=== PATIENT | male | born 1930 | race Caucasian/White ===

== ENCOUNTER 2016-12-28 12:11 | Inpatient (IN) | payer OTHER ==
[~2016-12-28] VITALS: Ht 177.8 cm; Wt 59.0 kg
[~2016-12-28 12:11] MED LIST: ASPIRIN EC81 M1 PO; ENALAPRIL MALEA20 M1 PO; FEOSOL325 MG PO; FINASTERIDE5 M1 PO; LIPITOR40 M1 PO; MIRTAZAPINE15 M2 PO; NAMENDA10 M2 PO; NORVASC2.5 M1 PO; OMEPRAZOLE20 M3 PO; VITAMIN D3400 UNI1 PO
--- NOTE | 2016-12-28 12:17 | NUR ---
86 Y/O MALE BROUGHT IN BY SON FOR EVAL OF MULTIPLE FALLS. SON STATES PT HAS VARIOUS AREAS OF SKIN CANCER ON HEAD AND PICKS AT THEM. MULTIPLE OPEN AREAS NOTED - SOME WITH DRIED BLOOD, OTHERS WITH SCABS. SON STATES PT IS FALLING A LOT. STRUCK HEAD THE OTHER DAY AND HAD + LOC. STRUCK HEAD TODAY AND DENIES LOC. PT HUNCHED FORWARD IN TRIAGE, DIFFICULT TO UNDERSTAND BUT SON REPORTS HX "NEUROLOGICAL CONDITION". R EYE RED AND SWOLLEN - FROM [place] PER SON TAKEN TO [facility] FOR EVAL.
--- NOTE | 2016-12-28 12:39 | NUR ---
TRIAGE NOTE ACKNOWLEDGED AND RN CARE ASSUMED PT BOUGHT TO ROOM # 19 AND EVALUATED BY PA STUDENT AND DEMETRIUS YEN. PT HAS MULTIPLE WOUNDS ON HEAD AND R EAR AT MULTIPLE STAGES OF HEALING. ACCORDING TO SON, PT HAS BEEN FALLING AT LEAST 6 TIMES A DAY SINCE APPROX. SEPTEMBER 2016. PT WENT TO LIVE WITH SON LAST NOVEMBER 2015 AND HE WAS FALLING ONCE OR TWICE A DAY, BUT HAS BEEN GETTING PROGRESSIVELY WORSE SINCE SEPTEMBER. ACCORDING TO SON, PT HAS BEEN REFUSING TO COME TO THE ED AND REFUSING MEDICAL TREATMENT. PT MAY HAVE HAD A LOC DUE TO A FALL 2 WEEKS AGO.
--- NOTE | 2016-12-28 12:58 | ED MVC/FALL/TRAUMA COMPLAINT ---
See Addendum History of Present Illness General Chief Complaint: Fall Stated Complaint: FALL Source: patient, family, old records Exam Limitations: clinical condition, confusion Vital Signs & Intake/Output Vital Signs & Intake/Output Vital Signs Date Time Temp Pulse Resp B/P B/P Pulse O2 O2 Flow FiO2 Mean Ox Delivery Rate 12/28 1632 87 18 142/58 98 Room Air 12/28 1432 132/58 12/28 1421 96.9 76 18 180/75 99 Room Air 12/28 1316 94 Room Air 12/28 1213 98.0 94 16 154/64 94 Room Air Allergies Coded Allergies: Penicillins (RASH, HIVES 05/09/16) bacitracin (From NEOSPORIN ([id number])) (RASH 05/09/16) latex (RASH 05/09/16) neomycin (From NEOSPORIN ([id number])) (RASH 05/09/16) polymyxin B (From NEOSPORIN ([id number])) (RASH 05/09/16) Reconcile Medications Amlodipine (Norvasc) 2.5 MG TABLET 1 TAB PO QPM BP (Reported) Aspirin (Ecotrin*) 81 MG TABLET.DR 1 TAB PO DAILY HEART/BLOOD (Reported) Atorvastatin Calcium (Lipitor) 40 MG TABLET 1 TAB PO QPM CHOLESTEROL ( Reported) Cholecalciferol (Vitamin D3) (Vitamin D3) (Unknown Strength) CAPSULE (Unknown Dose) PO DAILY SUPPLEMENT (Reported) Ferrous Sulfate (Iron Supplement) (Unknown Strength) TABLET (Unknown Dose) PO DAILY SUPPLEMENT (Reported) Finasteride 5 MG TABLET 1 TAB PO DAILY PROSTATE (Reported) Memantine HCl (Namenda XR) 7 MG CAP.SPR.24 1 TAB PO D DEMENTIA (Reported) Mirtazapine 15 MG TABLET 1 TAB PO QPM SLEEP (Reported) Omeprazole 20 MG TABLET.DR 1 TAB PO QPM REFLUX (Reported) Triage Note: 86 Y/O MALE BROUGHT IN BY SON FOR EVAL OF MULTIPLE FALLS. SON STATES PT HAS VARIOUS AREAS OF SKIN CANCER ON HEAD AND PICKS AT THEM. MULTIPLE OPEN AREAS NOTED - SOME WITH DRIED BLOOD, OTHERS WITH SCABS. SON STATES PT IS FALLING A LOT. STRUCK HEAD THE OTHER DAY AND HAD + LOC. STRUCK HEAD TODAY AND DENIES LOC. PT HUNCHED FORWARD IN TRIAGE, DIFFICULT TO UNDERSTAND BUT SON REPORTS HX "NEUROLOGICAL CONDITION". R EYE RED AND SWOLLEN - FROM [place] PER SON TAKEN TO [facility] FOR EVAL. Triage Nurses Notes Reviewed? yes Onset: Abrupt Duration: week(s):, getting worse Timing: recent history Severity: severe Injuries/Fall Location: face, neck, chest Method of Injury: fall Loss of Consciousness: no loss of consciousness HPI: 86-year-old male brought into the emergency room by his son for multiple falls over the past few months. Over 10 falls over the past week. Increased confusion. Patient has multiple bruises and skin abrasions to different areas on his body. Patient lives with his son. They do not have any home health aide. Patient has been increasingly weak. Increasingly confused. Exam is very limited secondary to the patient's condition. (DEMETRIUS VALDOVINOS) Past History Travel History Traveled to [place] past 21 day No Medical History Any Pertinent Medical History? see below for history Neurological: dementia EENT: NONE Cardiovascular: hypertension Respiratory: NONE Gastrointestinal: NONE Hepatic: NONE Renal: NONE Musculoskeletal: NONE Psychiatric: NONE Endocrine: NONE Blood Disorders: NONE Cancer(s): SKIN CANCER RELATIONS DIRECTOR/Reproductive: NONE Surgical History Surgical History: non-contributory Psychosocial History What is your primary language [place]ian Tobacco Use: Quit >30 days ago Family History Hx Contributory? No (DEMETRIUS VALDOVINOS) Review of Systems Review of Systems Constitutional: Reports: see HPI. Eyes: Reports: no symptoms. Ears, Nose, Throat, Mouth: Reports: no symptoms. Respiratory: Reports: no symptoms. Cardiovascular: Reports: no symptoms. Gastrointestinal/Abdominal: Reports: no symptoms. Genitourinary: Reports: no symptoms. Musculoskeletal: Reports: see HPI. Skin: Reports: see HPI. Neurological/Psychological: Reports: no symptoms. All Other Systems: Reviewed and Negative (DEMETRIUS VALDOVINOS) Physical Exam Physical Exam General Appearance: lethargic, moderate distress, thin Head: multiple skin abrasions, ecchymosis, right-sided facial drooping, Eyes: Bilateral: normal appearance. Ears, Nose, Throat, Mouth: hearing grossly normal, moist mucous membrane Neck: normal inspection Respiratory: no respiratory distress, decreased breath sounds, chest wall tenderness Gastrointestinal: soft Back: decreased range of motion Extremities: evidence of injury Neurologic/Psych: disoriented x 3 Core Measures ACS in differential dx? No Severe Sepsis Present: No Septic Shock Present: No (DEMETRIUS VALDOVINOS) Progress Differential Diagnosis: abd injury, C/T/L spine injury, ext injury, ICH, pelvis injury, pnemothorax, spinal cord injury Plan of Care: Orders Procedure Date/time Status TYPE & SCREEN (NOT X-MATCH) 12/28 UNK Active Regular Diet 12/28 D Active Bernardo, Insertion/Removal/Asses 12/28 1502 Active CULTURE,URINE 12/28 1502 Active URINALYSIS 12/28 1502 Complete Add-on Test (ER Only) 12/28 1338 Active TROPONIN LEVEL 12/28 1237 Complete COMPREHENSIVE METABOLIC PANEL 12/28 1237 Complete CBC WITHOUT DIFFERENTIAL 12/28 1237 Complete EKG 12/28 1226 Active Laboratory Tests 12/28/16 1600: Urinalysis LIGHT H, Urine Color YEL, Urine Clarity CLEAR, Urine pH 6.5, Ur Specific [place] 1.015, Urine Protein TRACE H, Urine Ketones NEG, Urine Nitrite NEG, Urine Bilirubin NEG, Urine Urobilinogen 0.2, Ur Leukocyte Esterase NEG, Ur Microscopic SEDIMENT EXAMINED, Urine WBC RARE, Urine Bacteria RARE H, Hyaline Casts RARE H, Urine Hemoglobin NEG, Urine Glucose NEG 12/28/16 1306: Anion Gap 8, Estimated GFR 44 L, BUN/Creatinine Ratio 21.3, Glucose 154 H, Calcium 8.6, Total Bilirubin 0.6, AST 51, ALT 44, Alkaline Phosphatase 99, Troponin I 0.02, Total Protein 6.1 L, Albumin 3.3 L, Globulin 2.8, Albumin/ Globulin Ratio 1.2, CBC w Diff NO MAN DIFF REQ, RBC 2.14 L, MCV 93.9, MCH 31.1 H, RDW 16.5 H, MPV 8.1, Gran % 87.2 H, Lymphocytes % 7.1 L, Monocytes % 5.3, Eosinophils % 0, Basophils % 0.4, Absolute Granulocytes 7.5 H, Absolute Lymphocytes 0.6 L, Absolute Monocytes 0.5, Absolute Eosinophils 0, Absolute Basophils 0, PUBS MCHC 33.1 Microbiology 12/28 1600 URINE ROUT: Urine Culture - RECD Diagnostic Imaging: Viewed by Me: CT Scan. Discussed w/RAD: CT Scan. Radiology Impression: SERVICE DATE: 12/28/16-1238 EXAM TYPE: CAT - CT ABD & PELVIS W/O IV CONTRAS; CT CHEST WO IV CONTRAST EXAMINATION: CT CHEST, ABDOMEN AND PELVIS WITHOUT CONTRAST CLINICAL INFORMATION: Status post fall. Nonverbal patient. COMPARISON: No pertinent prior studies are available for comparison. TECHNIQUE: Multidetector volumetric imaging was performed from the thoracic inlet through the pubic symphysis without contrast. Sagittal and coronal reformatted images were obtained on the technologist workstation. The arms are at the patient's side, somewhat limiting evaluation. DLP: 398 mGy-cm FINDINGS: CHEST: LUNG: Markedly hyperexpanded with a few scattered groundglass nodules, 2 in the right upper lobe, image 14 series 3 measuring 1.2 x 1.2 cm, a second one just inferior, image 16 series 3, 1.4 cm transverse dimension, both in the right upper lobe. A smaller focus is identified in the left upper lobe, image 16 series 3, measuring 7 mm. Another area of groundglass opacity surrounds multiple cysts, likely related to focal emphysematous changes, measuring 4 cm in AP dimension, image 158 series 5. This abuts the pleural surface laterally in the left upper lobe. The lungs are otherwise relatively clear with some dependent atelectasis and a likely small right-sided pleural effusion. No consolidation, contusion, or pneumothorax. MEDIASTINUM: There is moderate atherosclerotic aortic and coronary arterial calcifications. The heart does not appear significantly enlarged. Ascending aorta is ectatic, measuring 3.5 cm AP dimension. There is no evidence of mediastinal adenopathy. No lower cervical or hilar adenopathy. The thyroid gland appears largely unremarkable. There is no hiatal hernia. PERICARDIUM/PLEURA: Small right pleural effusion is suggested. No pericardial or left pleural effusion. CHEST WALL/AXILLA: Unremarkable. ABDOMEN/ PELVIS: LIVER, GALLBLADDER, BILIARY TREE: Unremarkable, without evidence of an acute injury. No focal hepatic lesions are identified on this noncontrast exam. PANCREAS: Not well visualized, due to lack of retroperitoneal fat and artifact, however, no obvious lesions are identified. SPLEEN: Somewhat difficult to visualize, however, unremarkable in appearance. There are indeterminate calcifications in the left upper quadrant, likely related to the splenic artery. There could be a 1.6 cm splenic artery aneurysm, image 56 series 2; however, this is questionable. ADRENAL GLANDS AND KIDNEYS: No obvious masses on this noncontrast examination. Partially calcified left adrenal lesion not excluded, measuring 1.5 cm, as noted above under spleen. There is a questionable small cyst in the left kidney. No definite masses on this noncontrast exam, which is once again limited. URETERS AND BLADDER: There is no evidence of hydroureteronephrosis. The urinary bladder is markedly distended, without evidence of an injury or hemorrhage. Streak artifact imaging limits evaluation in the lower pelvis. The prostate appears at least moderately enlarged. BOWEL LOOPS: Unremarkable on this noncontrast examination with minimal intraperitoneal fat. LYMPHOVASCULAR STRUCTURES: There is extensive atherosclerotic aortic calcification and ectasia, without evidence of a definitive aneurysm. Question splenic artery aneurysm, as noted above. There is no evidence of lymphadenopathy. PERITONEAL CAVITY: No intraperitoneal free fluid is seen, although imaging through the pelvis is once again limited due to streak artifact. PELVIC VISCERA: As noted above. BONES: The patient is status post right total hip arthroplasty. The entire femoral keenan portion is not included. There is mild anterior compression of the L2 vertebral body assuming 5 lumbar type vertebra without evidence of a definite acute fracture line. This vertebra appears to contain a prominent Schmorl's node or hemangioma on the right, a metastatic deposit is less likely. No other focal osseous lesions are seen. There are degenerative changes in the spine. There is no anterior abdominal wall hernia identified. IMPRESSION: 1. Limited exam due to positioning of the arms, lack of contrast and adipose tissue, however no evidence of an acute process or injury is identified. 2. The L2 compression deformity is age indeterminate but likely chronic with a probable underlying hemangioma. 3. Extensive COPD changes with a few scattered somewhat nodular appearing areas of groundglass opacity without evidence of lymphadenopathy. 4. Determine a partially calcified lesion left upper quadrant. 5. Markedly distended urinary bladder with prostate enlargement., SERVICE DATE: 12/28/16 EXAM TYPE: CAT - CT CERV SPINE WO IV CONTRAST; CT HEAD WO IV CONTRAST; CT MAXILLOFACIAL W/O CON EXAMINATION: NONCONTRAST HEAD CT NONCONTRAST MAXILLOFACIAL CT NONCONTRAST CERVICAL SPINE CT INDICATION INFORMATION: Fall. Trauma. COMPARISON: None TECHNIQUE: Separate noncontrast CT examinations of the head, maxillofacial bones, and cervical spine were performed. Coronal and sagittal images were created for each examination at the technologist workstation. FINDINGS: Motion limits the evaluation. Head: No evidence of acute intracranial hemorrhage. No extra-axial fluid collections are seen. Barnes-white differentiation is maintained without evidence of acute territorial infarction. No hydrocephalus. Moderate volume loss. Moderate periventricular and deep white matter hypoattenuation is consistent with small vessel ischemic change. No mass effect or midline shift. Partial opacification of the left mastoid air cells. The right mastoid air cells are well aerated.. No acute calvarial fractures are seen. Maxillofacial: No acute maxillofacial fractures are seen. Subtle fracture is difficult to exclude given the motion limitations of the study. The pterygoid plates are intact. The lamina papyracea are grossly intact. The zygomatic arches are intact. The orbital rims appear intact. The frontal, maxillary, ethmoid, and sphenoid sinuses are well aerated. The uncinate process is normal bilaterally. The infundibula and middle meati are patent. The nasal septum is midline. The mandibular heads are well-seated in the condylar fossa. The orbits demonstrate a normal appearance bilaterally. The globes are intact, and there are no suspicious findings to suggest retrobulbar hemorrhage. Cervical spine: There is anatomic alignment of the vertebral bodies and posterior elements. Vertebral body heights are maintained. There is multilevel disc space narrowing with endplate osteophyte formation and vacuum disc phenomenon. Fusion of the C2-C3 facets. Multilevel facet arthropathy. The atlantoaxial and atlantooccipital articulations are intact. No evidence of acute fracture. No prevertebral soft tissue swelling. Minimal biapical pleural thickening in the lungs. Minimal paraseptal emphysema.. Calcifications are seen in the thyroid gland. IMPRESSION: The study is significantly motion limited. No gross intracranial acute abnormality. Volume loss with small vessel ischemic changes. No acute maxillofacial fracture is seen, although there is significant motion limitation. No acute fracture or malalignment of the cervical spine. Moderate degenerative changes. DICTATED BY: SAUD TAYLOR MD DATE/TIME DICTATED:12/28/161355 FILM VAULT SUPERVISOR:WAQAS DATE/TIME TRANSCRIBED:1355 Initial ED EKG: normal intervals, normal p-waves, normal sinus rhythm, rate (83) , nonspecific ST T wave chg (DEMETRIUS VALDOVINOS) Departure Departure Disposition: STILL A PATIENT Condition: Stable Clinical Impression Primary Impression: Symptomatic anemia Secondary Impressions: Gait instability Referrals: LILA CORTEZ (PCP/Family) Departure Forms: Customer Survey General Discharge Information Observation Note Spoke With: ОЛЕГ GAMBLE M.D Physician Advisor Notified: TRISH NAVARRO,GLORIA [address] Patient In: Non-ED OBS Care Area Rationale for Observation: My rational for observation is as follows . Patient is falling continuously at home. Unable to ambulate or walk here in the emergency room. Unsafe at home. Patient will require blood transfusion. Physical therapy consult. High risk. Patient would do poorly as an outpatient. facial droop is chronic. (DEMETRIUS VALDOVINOS) PA/BENEFITS ASSISTANT Co-Sign Statement Statement: ED Attending supervision documentation- [X] I saw and evaluated the patient. I have also reviewed all the pertinent lab results and diagnostic results. I agree with the findings and the plan of care as documented in the PA's/BENEFITS ASSISTANT's documentation. [] I have reviewed the ED Record and agree with the PA's/BENEFITS ASSISTANT's documentation. [] Additions or exceptions (if any) to the PAs/BENEFITS ASSISTANT's note and plan are summarized below: [] (ALVARO NAVARRO,JENNIFER Medrano) ED Attending Observation Initial Observation Note: I have seen and personally examined RICK MULLIGAN on 12/28/16 at 1734. I agree with the current emergency department documentation. The disposition (admission or discharge) is uncertain at this time, he needs a period of observation for the following reason(s): The ED Nurse caring for this patient has been personally informed as to what the patient is being observed for. (DEMETRIUS VALDOVINOS)
--- NOTE | 2016-12-28 13:13 | NUR ---
EKG DONE. PT CONNECTED TO RECRUITING SCHEDULER. BLOOD DRAWN DIRECTED. 20 G ROLY PLACED IN LEFT FOREARN
[2016-12-28] MEDS ORDERED: NAMENDA XR7 M1 PO (13:23)
--- NOTE | 2016-12-28 13:26 | NUR ---
PT SENT TO CT SCAN
[2016-12-28 13:27] LABS: ABSOLUTE BASOPHIL COUNT 0 /CUMM (0.0-0.2); ABSOLUTE EOSINOPHIL COUNT 0 /CUMM (0.0-0.7); ABSOLUTE GRANULOCYTE CT 7.5 /CUMM (1.4-6.5); ABSOLUTE LYMPH COUNT 0.6 /CUMM (1.2-3.4); ABSOLUTE MONOCYTE COUNT 0.5 /CUMM (0.10-0.60); BASOPHIL % 0.4 % (0.0-2.0); EOSINOPHIL % 0 % (0-5); HEMATOCRIT 20.1 % (42-52); MEAN CORPUSCULAR HGB 31.1 PG (27.0-31.0); MEAN CORPUSCULAR HGB CONC 33.1 G/DL (33.0-37.0); MEAN CORPUSCULAR VOLUME 93.9 FL (80.0-94.0); MEAN PLATELET VOLUME 8.1 FL (7.4-10.4); PLATELET COUNT 291 /CUMM (130-400); RBC DISTRIBUTION WIDTH 16.5 % (11.5-14.5); RED BLOOD CELL CT 2.14 /CUMM (4.70-6.10); WHITE BLOOD CELL COUNT 8.6 /CUMM (4.8-10.8)
--- NOTE | 2016-12-28 13:30 | NUR ---
CRITICAL TEST RESULTS [id number] RICK MULLIGAN 86 M TESTS AND RESULTS: HGB 6.7; HCT 20.1 Results received and read back by: GRAZYNA HILL Results received date and time: 12/28/16 1331 The following provider was notified of the results, and read the results back: DEMETRIUS YEN Notified date and time: 12/28/16 at 1330
[2016-12-28 13:43] LABS: GRANULOCYTE % 87.2 % (42.2-75.2)
--- NOTE | 2016-12-28 13:44 | NUR ---
PT TO AND BACK FROM CT SCAN
--- NOTE | 2016-12-28 14:12 | CT SCAN REPORT ---
EXAMINATION: NONCONTRAST HEAD CT NONCONTRAST MAXILLOFACIAL CT NONCONTRAST CERVICAL SPINE CT INDICATION INFORMATION: Fall. Trauma. COMPARISON: None TECHNIQUE: Separate noncontrast CT examinations of the head, maxillofacial bones, and cervical spine were performed. Coronal and sagittal images were created for each examination at the technologist workstation. FINDINGS: Motion limits the evaluation. Head: No evidence of acute intracranial hemorrhage. No extra-axial fluid collections are seen. Barnes-white differentiation is maintained without evidence of acute territorial infarction. No hydrocephalus. Moderate volume loss. Moderate periventricular and deep white matter hypoattenuation is consistent with small vessel ischemic change. No mass effect or midline shift. Partial opacification of the left mastoid air cells. The right mastoid air cells are well aerated.. No acute calvarial fractures are seen. Maxillofacial: No acute maxillofacial fractures are seen. Subtle fracture is difficult to exclude given the motion limitations of the study. The pterygoid plates are intact. The lamina papyracea are grossly intact. The zygomatic arches are intact. The orbital rims appear intact. The frontal, maxillary, ethmoid, and sphenoid sinuses are well aerated. The uncinate process is normal bilaterally. The infundibula and middle meati are patent. The nasal septum is midline. The mandibular heads are well-seated in the condylar fossa. The orbits demonstrate a normal appearance bilaterally. The globes are intact, and there are no suspicious findings to suggest retrobulbar hemorrhage. Cervical spine: There is anatomic alignment of the vertebral bodies and posterior elements. Vertebral body heights are maintained. There is multilevel disc space narrowing with endplate osteophyte formation and vacuum disc phenomenon. Fusion of the C2-C3 facets. Multilevel facet arthropathy. The atlantoaxial and atlantooccipital articulations are intact. No evidence of acute fracture. No prevertebral soft tissue swelling. Minimal biapical pleural thickening in the lungs. Minimal paraseptal emphysema.. Calcifications are seen in the thyroid gland. IMPRESSION: The study is significantly motion limited. No gross intracranial acute abnormality. Volume loss with small vessel ischemic changes. No acute maxillofacial fracture is seen, although there is significant motion limitation. No acute fracture or malalignment of the cervical spine. Moderate degenerative changes.
--- NOTE | 2016-12-28 14:46 | NUR ---
WOUNDS ON FACE CLEANSED WITH N/S. TEFLA DRESSING APPLIED TO LEFT ARM SKIN TEAR WITH DSD
--- NOTE | 2016-12-28 14:51 | CT SCAN REPORT ---
EXAMINATION: CT CHEST, ABDOMEN AND PELVIS WITHOUT CONTRAST CLINICAL INFORMATION: Status post fall. Nonverbal patient. COMPARISON: No pertinent prior studies are available for comparison. TECHNIQUE: Multidetector volumetric imaging was performed from the thoracic inlet through the pubic symphysis without contrast. Sagittal and coronal reformatted images were obtained on the technologist workstation. The arms are at the patient's side, somewhat limiting evaluation. DLP: 398 mGy-cm FINDINGS: CHEST: LUNG: Markedly hyperexpanded with a few scattered groundglass nodules, 2 in the right upper lobe, image 14 series 3 measuring 1.2 x 1.2 cm, a second one just inferior, image 16 series 3, 1.4 cm transverse dimension, both in the right upper lobe. A smaller focus is identified in the left upper lobe, image 16 series 3, measuring 7 mm. Another area of groundglass opacity surrounds multiple cysts, likely related to focal emphysematous changes, measuring 4 cm in AP dimension, image 158 series 5. This abuts the pleural surface laterally in the left upper lobe. The lungs are otherwise relatively clear with some dependent atelectasis and a likely small right-sided pleural effusion. No consolidation, contusion, or pneumothorax. MEDIASTINUM: There is moderate atherosclerotic aortic and coronary arterial calcifications. The heart does not appear significantly enlarged. Ascending aorta is ectatic, measuring 3.5 cm AP dimension. There is no evidence of mediastinal adenopathy. No lower cervical or hilar adenopathy. The thyroid gland appears largely unremarkable. There is no hiatal hernia. PERICARDIUM/PLEURA: Small right pleural effusion is suggested. No pericardial or left pleural effusion. CHEST WALL/AXILLA: Unremarkable. ABDOMEN/PELVIS: LIVER, GALLBLADDER, BILIARY TREE: Unremarkable, without evidence of an acute injury. No focal hepatic lesions are identified on this noncontrast exam. PANCREAS: Not well visualized, due to lack of retroperitoneal fat and artifact, however, no obvious lesions are identified. SPLEEN: Somewhat difficult to visualize, however, unremarkable in appearance. There are indeterminate calcifications in the left upper quadrant, likely related to the splenic artery. There could be a 1.6 cm splenic artery aneurysm, image 56 series 2; however, this is questionable. ADRENAL GLANDS AND KIDNEYS: No obvious masses on this noncontrast examination. Partially calcified left adrenal lesion not excluded, measuring 1.5 cm, as noted above under spleen. There is a questionable small cyst in the left kidney. No definite masses on this noncontrast exam, which is once again limited. URETERS AND BLADDER: There is no evidence of hydroureteronephrosis. The urinary bladder is markedly distended, without evidence of an injury or hemorrhage. Streak artifact imaging limits evaluation in the lower pelvis. The prostate appears at least moderately enlarged. BOWEL LOOPS: Unremarkable on this noncontrast examination with minimal intraperitoneal fat. LYMPHOVASCULAR STRUCTURES: There is extensive atherosclerotic aortic calcification and ectasia, without evidence of a definitive aneurysm. Question splenic artery aneurysm, as noted above. There is no evidence of lymphadenopathy. PERITONEAL CAVITY: No intraperitoneal free fluid is seen, although imaging through the pelvis is once again limited due to streak artifact. PELVIC VISCERA: As noted above. BONES: The patient is status post right total hip arthroplasty. The entire femoral keenan portion is not included. There is mild anterior compression of the L2 vertebral body assuming 5 lumbar type vertebra without evidence of a definite acute fracture line. This vertebra appears to contain a prominent Schmorl's node or hemangioma on the right, a metastatic deposit is less likely. No other focal osseous lesions are seen. There are degenerative changes in the spine. There is no anterior abdominal wall hernia identified. IMPRESSION: 1. Limited exam due to positioning of the arms, lack of contrast and adipose tissue, however no evidence of an acute process or injury is identified. 2. The L2 compression deformity is age indeterminate but likely chronic with a probable underlying hemangioma. 3. Extensive COPD changes with a few scattered somewhat nodular appearing areas of groundglass opacity without evidence of lymphadenopathy. 4. Determine a partially calcified lesion left upper quadrant. 5. Markedly distended urinary bladder with prostate enlargement.
--- NOTE | 2016-12-28 15:37 | NUR ---
2 CUPS OF VANILLIA ICDE CREAM ORDERED FROM [facility]
--- NOTE | 2016-12-28 15:39 | NUR ---
UNABLE TO [PASS BAUER, PT HAS LARGE PROSTATE. PA AWARE/
--- NOTE | 2016-12-28 16:04 | NUR ---
PT WITH ABRASIONS TO TOP OF HEAD, UNDER RT EYE, CHEEKS, RT ARM FOREARM, L ARM BILAT LEGS SCABBED AREA TO RT KNEE. PT WITH OLD ECCHYMOSIS NOTED TO RT HIP AND RT FLANK, ALSO WITH NUMEROUS SCABBED AREAS TO BACK, CENTER SOME OPEN PT SPEECH GARBLED, BUT CAN GET OUT A WORD OR 2 CLEARLY. PT WITH TREMORS, BUT FOLLOWS DIRECTION.
--- NOTE | 2016-12-28 16:15 | NUR ---
BAUER INSERTED BY GRAZYNA RN, #16 COUDE. TRIO SENT.
--- NOTE | 2016-12-28 16:52 | NUR ---
CONT TO AWAIT ADMISSION.
--- NOTE | 2016-12-28 17:02 | NUR ---
PT ABLE TO EAT 2 SMALL CONTAINERS OF VANILLA ICE CREAM ERICKSON WELL NO DIFF SWALLOWING.
--- NOTE | 2016-12-28 17:43 | NUR ---
PT BECOMING MORE AGITATED, RESTLESS WANTS TO LEAVE. MED WITH HALDOL 2.5 MG IM.
--- NOTE | 2016-12-28 18:03 | NUR ---
CONT TO AWAIT ADMISSION PROCESS, REFERRED TO HOSPITALIST AND MOD FAMILY PATIENTLY AWAITING HOUSESTAFF. PT ASLEEP AT THIS TIME.
--- NOTE | 2016-12-28 18:21 | NUR ---
HOUSESTAFF AT BEDSIDE.
--- NOTE | 2016-12-28 18:47 | NUR ---
CONT TO AWAIT ORDERS FOR ADMISSION, DR. JOHN REMINDED AGAIN.
--- NOTE | 2016-12-28 19:03 | NUR ---
ORDERS PLACED NOW AWAIT ADMISSION PROCESS.
--- NOTE | 2016-12-28 19:20 | NUR ---
CONT TO AWAIT BED.
--- NOTE | 2016-12-28 19:33 | NUR ---
CONT TO AWAIT BED, PT ERICKSON PO WITH SYRINGE. ABLE TO ANSWER 1 WORD QUESTIONS.
--- NOTE | 2016-12-28 19:35 | NUR ---
PT'S RM ASSIGNMENT 204 BED 2
--- NOTE | 2016-12-28 19:56 | NUR ---
REPORT TO JUANCARLOS MAYS 700 CCS AND EMPTIED. DISTRIBUTION BOOKED.
--- NOTE | 2016-12-28 20:45 | History & Physical ---
LARON NAVARRO,SARATH [birth year]: General Information and HPI MD Statement: I have seen and personally examined RICK MULLIGAN and documented this H&P. The patient is a 86 year old M who presented with a patient stated chief complaint of multiple falls[]. Source of Information: family, old records Exam Limitations: clinical condition, dementia History of Present Illness: 86 YO M with a PMH of dementia, HTN, Basal Cell Cancer, BPH, HLD arrives from home with his son. Patient is unable to give history and history is obtained from son and daughter at bedside. Report ongoing falls for the past several months which have been increasing in frequency. Report that the patient has not been eating well, with sleep disturbances and has become more forgetful and weak. Over the past 2 weeks his symptoms have progressed significantly, and he is barely eating, falling at least 10 times daily, this has resulted in multiple bruises over his body. Son reports being his developmental psychologist, and that the patient is unable to carry out his ADLs. Has not been able to manage finances for a long time, decreased short term memory Family denies fevers, chills, sick contacts, cough, or urinary symptoms. Deny bloody bowel movements. Allergies/Medications Allergies: Coded Allergies: Penicillins (RASH, HIVES 05/09/16) bacitracin (From NEOSPORIN ([id number])) (RASH 05/09/16) latex (RASH 05/09/16) neomycin (From NEOSPORIN ([id number])) (RASH 05/09/16) polymyxin B (From NEOSPORIN ([id number])) (RASH 05/09/16) Home Med list Amlodipine (Norvasc) 2.5 MG TABLET 1 TAB PO QPM BP (Reported) Aspirin (Ecotrin*) 81 MG TABLET.DR 1 TAB PO DAILY HEART/BLOOD (Reported) Atorvastatin Calcium (Lipitor) 40 MG TABLET 1 TAB PO QPM CHOLESTEROL ( Reported) Cholecalciferol (Vitamin D3) (Vitamin D3) 400 UNIT TABLET 2 TAB PO DAILY VITAMIN D (Reported) Ferrous Sulfate (Feosol) 325 MG (65 MG IRON) TABLET 1 TAB PO DAILY IRON SUPPLEMENT (Reported) Finasteride 5 MG TABLET 1 TAB PO DAILY PROSTATE (Reported) Memantine HCl (Namenda XR) 7 MG CAP.SPR.24 1 TAB PO D DEMENTIA (Reported) Mirtazapine 15 MG TABLET 1 TAB PO QPM SLEEP (Reported) Omeprazole 20 MG TABLET. 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 Psychosocial History Where do you live? Home Who Do You Live With? child Services at Home: None Primary Language: Israeli Smoking Status: Former Smoker ETOH Use: denies use Illicit Drug Use: denies illicit drug use Power of Assisted Living Nursing Director/HCP? yes (son) Functional Ability ADLs Needs Assist: dressing, eating, toileting, bathing. Ambulation: walker IADLs Needs Assist: shopping, housework, finances, food prep, telephone, transportation, medication admin. Employment History Employment Retired Review of Systems Review of Systems Constitutional: Reports: weakness, unexplained weight loss. Denies: chills, fever. Cardiovascular: Denies: chest pain, palpitations. Respiratory: Denies: cough, orthopnea, short of breath, sputum production. GI: Denies: abdominal pain, constipation, diarrhea, bloody stool. Genitourinary: Reports: no symptoms. Musculoskeletal: Reports: no symptoms. Skin: Reports: change in skin color, erythema (hematoma). Neurological/Psychological: Reports: dementia. All Other Systems: Reviewed and Negative Exam & Diagnostic Data Last 24 Hrs of Vital Signs/I&O Vital Signs Date Time Temp Pulse Resp B/P B/P Pulse O2 O2 Flow FiO2 Mean Ox Delivery Rate 12/28 1854 97.7 77 18 132/54 98 Room Air 12/28 1632 87 18 142/58 98 Room Air 12/28 1432 132/58 12/28 1421 96.9 76 18 180/75 99 Room Air 12/28 1316 94 Room Air 12/28 1213 98.0 94 16 154/64 94 Room Air Intake & Output 12/28 1600 12/28 0800 12/28 0000 Intake Total 0 Output Total Balance 0 Intake, IV 0 Patient 130 lb Weight Weight Reported by Patient Measurement Method Physical Exam General Appearance Alert, Cooperative, No Acute Distress Skin abrasions on his buttocks hematomas in various state of healing HEENT Multiple bruising on head in various state of healing Neck No JVD, No LAD Cardiovascular Regular Rate, Normal S1, Normal S2 Lungs decreased air movement Abdomen Normal Bowel Sounds, Soft, No Tenderness Neurological Reflexes 2+ Extremities No Edema, Normal Pulses, multiple bruising on limbs in various state of healing Last 24 Hrs of Labs/Wil: Laboratory Tests 12/28/16 1600: Urinalysis LIGHT H, Urine Color YEL, Urine Clarity CLEAR, Urine pH 6.5, Ur Specific [place] 1.015, Urine Protein TRACE H, Urine Ketones NEG, Urine Nitrite NEG, Urine Bilirubin NEG, Urine Urobilinogen 0.2, Ur Leukocyte Esterase NEG, Ur Microscopic SEDIMENT EXAMINED, Urine WBC RARE, Urine Bacteria RARE H, Hyaline Casts RARE H, Urine Hemoglobin NEG, Urine Glucose NEG 12/28/16 1306: Anion Gap 8, Estimated GFR 44 L, BUN/Creatinine Ratio 21.3, Glucose 154 H, Calcium 8.6, Total Bilirubin 0.6, AST 51, ALT 44, Alkaline Phosphatase 99, Troponin I 0.02, Total Protein 6.1 L, Albumin 3.3 L, Globulin 2.8, Albumin/ Globulin Ratio 1.2, CBC w Diff NO MAN DIFF REQ, RBC 2.14 L, MCV 93.9, MCH 31.1 H, RDW 16.5 H, MPV 8.1, Gran % 87.2 H, Lymphocytes % 7.1 L, Monocytes % 5.3, Eosinophils % 0, Basophils % 0.4, Absolute Granulocytes 7.5 H, Absolute Lymphocytes 0.6 L, Absolute Monocytes 0.5, Absolute Eosinophils 0, Absolute Basophils 0, PUBS MCHC 33.1 Microbiology 12/29 1599 URINE ROUT: Urine Culture - RECD Diagnostic Data EKG Results SR 83, QTc 456 Other Results IMPRESSION: 1. Limited exam due to positioning of the arms, lack of contrast and adipose tissue, however no evidence of an acute process or injury is identified. 2. The L2 compression deformity is age indeterminate but likely chronic with a probable underlying hemangioma. 3. Extensive COPD changes with a few scattered somewhat nodular appearing areas of groundglass opacity without evidence of lymphadenopathy. 4. Determine a partially calcified lesion left upper quadrant. 5. Markedly distended urinary bladder with prostate enlargement. IMPRESSION: The study is significantly motion limited. No gross intracranial acute abnormality. Volume loss with small vessel ischemic changes. No acute maxillofacial fracture is seen, although there is significant motion limitation. No acute fracture or malalignment of the cervical spine. Moderate degenerative changes. Assessment/Plan Assessment: 86 YO male with pmh of dementia arrives to the ER after multiple falls at home which appear to be due increased weakness. His dementia seems to be advanced, family complaining of ongoing change in mental status, weakness, change in dietary intake, incontience and change in sleep habits. Acute Anemia HH 9.9/20.1, 08/04/15. HH 6.7/20.1, hemodynamically stable transfuse 2 units, and recheck cbc peripheral smear, serum iron, TIBC, ferritin Dementia Continue Namenda f/u cbc, electrolytes, tsh Weakness check orthostats Vitamin B12 PT consult ANA MARIA Creatinine 1.0 08/04/15 Creatinine 1.5 this is likely due to decreased oral intake, will hydrate and check renal function Regular Diet DNR/I As Ranked By This Provider Problem List: 1. Gait instability 2. Dementia 3. Anemia 4. Hematoma Core Measures/Miscellaneous Acute Coronary Syndrome ACS Diagnosis: No Cerebrovascular Accident CVA/TIA Diagnosis: No Congestive Heart Failure CHF Diagnosis: No Venous Thromboembolism VTE Risk Factors: Age > 40 [facility] d/t: No contraindications No VTE Pharm Prophylaxis d/t: Active bleeding VTE Diagnosis: No VTE Type: NONE VTE Confirmed by (Test): NONE Severe Sepsis Severe Sepsis Present: No Septic Shock Septic Shock Present: No Miscellaneous Documentation Attending Case Discussed With: ОЛЕГ GAMBLE M.D Primary Care Physician: LILA CORTEZ Patient sees these Specialists neurologist Level of Patient Care: General Medicine NEL VELAZCO 12/28/16 2133: Attending MD Review Statement Attending Statement Attending MD Statement: examined this patient, discuss w/resident/PA/FLATBED DRIVER, agreed w/resident/PA/FLATBED DRIVER, discussed with family, reviewed EMR data (avail), reviewed images, amended to note Attending Assessment/Plan: CC: multiple fall PMH: Dementia, HTN, Basal cell cancer, BPH, anemia, ?TIA Patient was brought by family for multiple falls. History is obtain from patient 's son and patient's daughter was at bedside. According to them patient's condition has been declining progressively over many months, including but not limited to multiple falls, decreased by mouth intake, 'talking to his ', inappropriate emotional to responses (abnormal after laughter or crying in unusual circumstances)picking on his skin, decreased memory, urinary incontinence. Patient had been previously hospitalized in [facility] for multiple falls, one of which has intracranial hemorrhage. Patient falls at least 8-10 times in a day, even with walker. Son was not clear about mentioning gait problem or balance problem. After one of the falls, patient appeared losing his consciousness, but in fact he was not talking otherwise normal sensorium. No seizures observed. Son has not noticed any blood in his stool, urine, no vomiting. Patient was following neurologist in [facility], who mentioned that patient may have frontal dementia. Vitals: Afebrile, pulse 94, RR 16, blood pressure 154/64, saturating well on room air. On exam: Alert not oriented, fine tremors, multiple bruises all over the body, active bleeding from right ear scab, chronic changes right eye, cachectic. Pedal edema present. No abdominal tenderness, decreased bilateral breath sounds secondary to poor efforts, CVS S1-S2 RRR. Patient follows instructions, strength appears normal. Labs: Hemoglobin 6.7, neutrophils 87%, RDW 16, MCV 93 291, BUN 32, creatinine 1.5, glucose 154, calcium 8.6, albumin 3.3, total protein 6.1, LFT unremarkable CT maxillofacial, head CT, CT chest, cervical spine CT, abdominal pelvis CT was obtained in ER 1. The study is significantly motion limited. No gross intracranial acute abnormality. Volume loss with small vessel ischemic changes. 2. No acute maxillofacial fracture is seen, although there is significant motion limitation. 3. No acute fracture or malalignment of the cervical spine. Moderate degenerative changes. 4. Limited exam due to positioning of the arms, lack of contrast and adipose tissue, however no evidence of an acute process or injury is identified. 5. The L2 compression deformity is age indeterminate but likely chronic with a probable underlying hemangioma. 6. Extensive COPD changes with a few scattered somewhat nodular appearing areas of groundglass opacity without evidence of lymphadenopathy. 7. Determine a partially calcified lesion left upper quadrant. 8. Markedly distended urinary bladder with prostate enlargement. A and P Patient has progressively worsening functionality, and mental status changes. This appears to be rapidly progression of dementia. CT head mentions microvascular changes which may be causing vascular dementia along with previous diagnosis of frontal- temporal dementia. Underlying depression due to his 's loss 1 year back should be ruled out but patient is already on mirtazapine. He was also started on Namenda by the neurologist. Still patient's functionality is markedly declining. Patient appears cachectic, patient pleasant, follows instructions, not agitated, dehydrated and appears to have chronic anemia. # Rapidly worsening dementia # Multiple falls # Anemia # History of hypertension # History of CVA # History of BPH - Place in observation in general medicine floor for anemia - Type and screen and 1 unit PRBC transfusion - Goal hemoglobin 7 - Add iron studies, B12 level, folate Acid, pre-albumin to first sample obtained in ER - Orthostatic vitals - Gentle hydration 75 mL normal saline for 1 L - Continue aspirin, atorvastatin, vitamin D3, iron supplementation, finasteride, Namenda, mirtazapine. Hold amlodipine - When necessary Haldol for severe agitation if QTc in acceptable range - One-on-one sitter if patient severely agitated - OT PT evaluation - Case management consult for possible placement in [facility] I had detailed discussion with family about process and prognosis. Patient is DNR/DNI
[2016-12-28 22:04] VITALS: BP 144/58
[2016-12-29 01:47] VITALS: BP 148/68
[2016-12-29 02:32] VITALS: BP 144/62
[2016-12-29 04:40] VITALS: BP 142/54
--- NOTE | 2016-12-29 07:12 | PN- Housestaff ---
ROSA ENCINAS 12/29/16 0712: Subjective Follow-up For: Failure to thrive Acute anemia Recurrent falls ?ANA MARIA Complaints: pt unable to provide hx Subjective: Seen and examined patient. No agitation reported by staff overnight. Tolerating his diet but requires assistance. Unable to open right eye on his own. Able to answer simple questions. Review of Systems Constitutional: Denies: see HPI. Objective Last 24 Hrs of Vital Signs/I&O Vital Signs Date Time Temp Pulse Resp B/P B/P Pulse O2 O2 Flow FiO2 Mean Ox Delivery Rate 12/29 1400 98.5 70 20 134/56 95 Room Air 12/29 1142 Room Air 12/29 0440 99.7 68 20 142/54 96 Room Air 12/29 0232 98.6 70 20 144/62 96 Room Air 12/29 0147 98.9 72 22 148/68 95 Room Air 12/28 2204 98.3 77 21 144/58 97 Room Air 12/28 1854 97.7 77 18 132/54 98 Room Air 12/28 1632 87 18 142/58 98 Room Air 12/28 1432 132/58 12/28 1421 96.9 76 18 180/75 99 Room Air Intake & Output 12/29 1600 12/29 0800 12/29 0000 Intake Total 600 Output Total 400 500 860 Balance -400 100 -860 Intake, IV 600 Output, Urine 400 500 860 Patient 130 lb Weight Physical Exam General Appearance: No Acute Distress, awake Skin: multiple bruising associated with some bleeding all over the body noted. over right eye, scalp, b/l legs and back. Cardiovascular: Normal S1, Normal S2 Lungs: Normal Air Movement Abdomen: Soft Extremities: No Edema Current Medications: Current Medications Sig/Zhane Start time Last Medication Dose Route Stop Time Status Admin Acetaminophen 325 MG Q6P PRN 12/28 2045 AC PO Atorvastatin Calcium 40 MG QPM 12/28 2200 AC 12/28 PO 2226 Bisacodyl 10 MG ONCE PRN 12/29 1015 DC DC 12/29 1100 Docusate Sodium 100 MG DAILY 12/29 1016 AC 12/29 PO 1227 Finasteride 5 MG DAILY 12/28 1930 AC 12/29 PO 0841 Haloperidol 2.5 MG ONCE ONE 12/28 1745 DC 12/28 IM 12/28 1746 1738 Haloperidol 0 .STK-MED ONE 12/28 1739 DC .ROUTE Lidocaine 0 .STK-MED ONE 12/28 1545 DC TOP Memantine 5 MG BID 12/29 1000 AC 12/29 PO 0842 Mirtazapine 15 MG QPM 12/28 2200 AC 12/28 PO 2226 Polyethylene Glycol 17 GM DAILY 12/29 1016 AC 12/29 PO 1227 Senna/Docusate Sodium 2 TAB DAILY 12/30 1000 AC PO Sodium Chloride 1,000 ML Q13H 12/285 DC 12/29 IV 12/29 0944 0447 Last 24 Hrs of Lab/Wil Results Last 24 Hrs of Labs/Mics: Laboratory Tests 12/29/16 0835: Anion Gap 6, Estimated GFR 52 L, BUN/Creatinine Ratio 18.5, CBC w Diff NO MAN DIFF REQ, RBC 2.94 L, MCV 92.3, MCH 30.6, RDW 16.4 H, MPV 8.2, Gran % 88.0 H, Lymphocytes % 6.4 L, Monocytes % 5.1, Eosinophils % 0, Basophils % 0.5, Absolute Granulocytes 10.1 H, Absolute Lymphocytes 0.7 L, Absolute Monocytes 0.6, Absolute Eosinophils 0, Absolute Basophils 0.1, PUBS MCHC 33.1 12/28/16 2100: Iron Cancelled, TIBC Cancelled, Ferritin Cancelled 12/28/16 1600: Urinalysis LIGHT H, Urine Color YEL, Urine Clarity CLEAR, Urine pH 6.5, Ur Specific [place] 1.015, Urine Protein TRACE H, Urine Ketones NEG, Urine Nitrite NEG, Urine Bilirubin NEG, Urine Urobilinogen 0.2, Ur Leukocyte Esterase NEG, Ur Microscopic SEDIMENT EXAMINED, Urine WBC RARE, Urine Bacteria RARE H, Hyaline Casts RARE H, Urine Hemoglobin NEG, Urine Glucose NEG Microbiology 12/29 1599 URINE ROUT: Urine Culture - RES Assessment/Plan Assessment: 86 year old gentleman from home with a PMH of frontotemporal dementia, HTN, CVA, Basal Cell Cancer, BPH, HLD brought by son for recurrent falls, increasing weakness and decreased PO intake. On admission H/H was found to be 6.7/20.1, imaging r/o acute intracranial abnormality, maxillofacial/ c-spine fracture. He currently s/p 2 units PRBC transfusion. Acute Anemia h/h today 9.0 we reach to his PCP's office to obtain records to verify if he has underlying chronic anemia serum iron=28, normal TIBC and ferritin levels will guaic his stools. Dementia/Weakness/falls Continue home medication of Kellya will reach out to his neurologist Dr. Mendoza's office for his medical records. medications reviewed and no significant sedating meds was noted wnl vit b12 levels PT to assess for discharge planning. ANA MARIA improving 03/10.3 today most likely pre renal azotemia will reach out to his PCP to see what his baseline is,? CKD Regular Diet DNR/I Problem List: 1. Anemia 2. Dementia Pain Ratin Pain Location: na Pain Goal: Pain 4 or less Pain Plan: current regimen Tomorrow's Labs & Rationales: cbc/bep ОЛЕГ GAMBLE MD 12/29/16 1223: Attending MD Review Statement Attending Statement Attending MD Statement: examined this patient, discuss w/resident/PA/SEXUAL ASSAULT SOCIAL WORKER, agreed w/resident/PA/SEXUAL ASSAULT SOCIAL WORKER, reviewed EMR data (avail), discussed with nursing, discussed with case mgmt, amended to note Attending Assessment/Plan: Patient seen and examined. Does not appear to be in acute painful distress. He is lethargic portals answer simple commands. He denies any pain. He was asking for ice cream. Nursing staff reports that he completed his meal his breakfast required assistance all through. On examination is unable to open his right eyelid. Apparently this is chronic following his eye surgery. He has significant maxillary ecchymosis on the right side. He has diffuse scrapes and bruises on his scalp and limbs. He has no carotid bruit. Heart sounds are regular. Lungs are clear to auscultation. He moves all extremities spontaneously and to command. EKG showed normal sinus rhythm with no acute ischemic changes. He is not on any excessive sedating medications at home. He has no evidence of an infectious process. He is willing to try and frequent falls appear to be secondary to deconditioning. His level of anemia is also likely contributing significantly to this. There is no evidence of active bleeding going on. His hemoglobin level has improved significantly following transfusion. We have no recent baseline for comparison here. Problems: 1. Anemia; query chronicity 2. Renal insufficiency; query chronicity 3. Failure to thrive 4. Multiple falls; probably secondary to severe dementia. 5. Advanced dementia Plan: -Check stool guaiac to rule out occult GI bleeding. -Physical therapy evaluation for safe discharge planning. -Talent Development Manager consultation. -Follow-up with primary care provider regarding baseline hemoglobin and creatinine levels. -Follow-up with his neurologist regarding workup done for his dementia and falls. -If his hemoglobin level is stable overnight as well as creatinine level patient may be discharged to [facility] for continued physical therapy as tolerated. He may require long-term placement. -His falls may be related to symptomatic anemia. Follow-up with nursing staff in a.m. to determine if sleep pattern has improved following transfusion. -Continue supportive care.
[2016-12-29 08:52] LABS: ABSOLUTE BASOPHIL COUNT 0.1 /CUMM (0.0-0.2); ABSOLUTE EOSINOPHIL COUNT 0 /CUMM (0.0-0.7); ABSOLUTE GRANULOCYTE CT 10.1 /CUMM (1.4-6.5); ABSOLUTE LYMPH COUNT 0.7 /CUMM (1.2-3.4); ABSOLUTE MONOCYTE COUNT 0.6 /CUMM (0.10-0.60); BASOPHIL % 0.5 % (0.0-2.0); EOSINOPHIL % 0 % (0-5); MEAN CORPUSCULAR HGB 30.6 PG (27.0-31.0); MEAN CORPUSCULAR HGB CONC 33.1 G/DL (33.0-37.0); MEAN CORPUSCULAR VOLUME 92.3 FL (80.0-94.0); MEAN PLATELET VOLUME 8.2 FL (7.4-10.4); PLATELET COUNT 230 /CUMM (130-400); RBC DISTRIBUTION WIDTH 16.4 % (11.5-14.5); WHITE BLOOD CELL COUNT 11.5 /CUMM (4.8-10.8)
[2016-12-29 09:00] LABS: HEMATOCRIT 27.1 % (42-52); RED BLOOD CELL CT 2.94 /CUMM (4.70-6.10)
--- NOTE | 2016-12-29 10:23 | PN- Student ---
GOLDIE TREVIZO 12/29/16 1022: Subjective Subjective: Pt was seen by medical student sitting up in bed this morning in [facility]. cardiac cath lab radiology technologist feeding pt breakfast which he was tolerating. Medicine team returned after breakfast to assess. Pt was then laying in bed in [facility]. Pt opened left eye manually, was able to acknowledge the medicine team with a hand gesture with the left hand by raising his arm. Pt attempted to answer questions, but responses limited by dysarthria. Objective Objective: Pt is an 86yo male with PMH significant for frontal lobe dementia, anemia, skin ca, BPH, and HTN who was admitted from the ED yesterday for increasing falls, acute progression of dementia, and severe anemia. Vital Signs Date Time Temp Pulse Resp B/P B/P Pulse O2 O2 Flow FiO2 Mean Ox Delivery Rate 12/29 1400 98.5 70 20 134/56 95 Room Air 12/29 1142 Room Air 12/29 0440 99.7 68 20 142/54 96 Room Air 12/29 0232 98.6 70 20 144/62 96 Room Air 12/29 0147 98.9 72 22 148/68 95 Room Air 12/28 2204 98.3 77 21 144/58 97 Room Air 12/28 1854 97.7 77 18 132/54 98 Room Air 12/28 1632 87 18 142/58 98 Room Air PE: Gen: elderly, cachexic appearing male, lying in bed, in NAD HEENT: NC, several healing wounds of varying size from falls and skin bx/ excisions on the scalp, large 6cm oval shaped hematoma under the right eye, CV: S1S2 Lungs: CTA BL Abd: soft, NT, ND Skin: thin skin, bruising Ext: hematoma on the right hip s/p fall Neuro: tremulous, hypertonic, not able to assess cranial nerve function ROS: unable to assess Results Results: Laboratory Tests 12/29/16 0835: Anion Gap 6, Estimated GFR 52 L, BUN/Creatinine Ratio 18.5, CBC w Diff NO MAN DIFF REQ, RBC 2.94 L, MCV 92.3, MCH 30.6, RDW 16.4 H, MPV 8.2, Gran % 88.0 H, Lymphocytes % 6.4 L, Monocytes % 5.1, Eosinophils % 0, Basophils % 0.5, Absolute Granulocytes 10.1 H, Absolute Lymphocytes 0.7 L, Absolute Monocytes 0.6, Absolute Eosinophils 0, Absolute Basophils 0.1, PUBS MCHC 33.1 12/28/16 2100: Iron Cancelled, TIBC Cancelled, Ferritin Cancelled 12/28/16 1600: Urinalysis LIGHT H, Urine Color YEL, Urine Clarity CLEAR, Urine pH 6.5, Ur Specific [place] 1.015, Urine Protein TRACE H, Urine Ketones NEG, Urine Nitrite NEG, Urine Bilirubin NEG, Urine Urobilinogen 0.2, Ur Leukocyte Esterase NEG, Ur Microscopic SEDIMENT EXAMINED, Urine WBC RARE, Urine Bacteria RARE H, Hyaline Casts RARE H, Urine Hemoglobin NEG, Urine Glucose NEG 12/28/16 1306: Anion Gap 8, Estimated GFR 44 L, BUN/Creatinine Ratio 21.3, Glucose 154 H, Calcium 8.6, Iron 28 L, TIBC 323, Ferritin 77.4, Total Bilirubin 0.6, AST 51, ALT 44, Alkaline Phosphatase 99, Troponin I 0.02, Total Protein 6.1 L, Albumin 3.3 L, Globulin 2.8, Albumin/Globulin Ratio 1.2, Prealbumin 14.4 L, Vitamin B12 907, Folate > 20.0 H, CBC w Diff NO MAN DIFF REQ, RBC 2.14 L, MCV 93.9, MCH 31.1 H, RDW 16.5 H, MPV 8.1, Gran % 87.2 H, Lymphocytes % 7.1 L, Monocytes % 5.3, Eosinophils % 0, Basophils % 0.4, Absolute Granulocytes 7.5 H, Absolute Lymphocytes 0.6 L, Absolute Monocytes 0.5, Absolute Eosinophils 0, Absolute Basophils 0, PUBS MCHC 33.1 12/28/16 1000: Vitamin B12 Cancelled 12/28/16 0830: Ferritin Cancelled Microbiology 12/28 1600 URINE ROUT: Urine Culture - RES Assessment/Plan Assessment: Pt is a 86yo male with PMH significant for frontotemporal lobe dementia, anemia, skin ca, BPH, and HTN who was admitted from the ED yesterday for increasing frequency of mechanical falls, acute progression of dementia, and severe anemia. Pt's history obtained from son and daughter in the ED yesterday. Pt has a history of falling for the past 1.5 years, worse at night, with increasing frequency in the past 5-6 months. The son reports waking at 11pm to find that pt has fallen and staying up with him until 1am on a regular basis. Pt is legally blind in the right eye and has difficulty opening the left eye. Pt had full work up for falls in Fall 2014 and no diagnosis was made at that time. Pt presented to ED with son and daughter yesterday after acute progression of falling, decreased coordination, decrease PO intake, and decreased cognition since Sunday. CT Head neg for acute ICB/maxillofacial fracture, image limited by motion. CT Abd/Pelvis sig for distended bladder. CT Chest sig for COPD changes, calcified lesion in LUQ. His increased fall rate could be due to anemia vs. progression of his dementia vs. limited visualization of his surroundings vs. loss of muscle mass resulting in weakness. ED labs showed significant anemia hgb 6.7, Cr 1.5, BUN 32. Pt was transfused with 2 units overnight. Today Hgb 9.0/BUN 24/Cr 1.3 improved. WBC increased to 11.5 from 8.6. Plan: #1 Anemia: Hgb/Hct in the ED was 6.7/20.1. Pt transfused over night with 2 units of blood. Hgb/Hct today improved to 9.0/27.1. Severe can manifest as weakness due to decreased O2 delivery to the tissues. Per son, pt has a history of chronic anemia. PCP has been contacted for recent labs to verify Hgb levels. GI bleeding must be ruled out. Pt has also had weight loss reported by son and could be undernourished. Per son, pt is on Fe at home, but dosing not ascertained. -Stool guiac -ascertain hx from family of tarry stool? BRBPR? -Fe supplementation -Continue to monitor Hgb/Hct -transfuse if hgb trends down #2 Frontal Lobe Dementia: Per the pt's son, pt has increased the number of falls /day siginificantly since last Sunday. Also since Sunday, per son, pt has diminished appetite and PO intake. Symptoms of frontal lobe dementia include supranuclear palsy, vertical gaze palsy, axial dystonia, hypererect posture, rigidity, and bradykinesia a progression of which can lead to decreased stability and increased falling. This presentation could be due to progression of his dementia complicated by anemia. There was a question of MIRTAZAPINE as a possible etiology of the increased falling due to possible sedative effects. PCP office was contacted today, pt was first prescribed MIRTAZAPINE 01/2016 and it was last filled in Sep 2016. This is not a new medication making it less likely that it is the cause of the pt's recent acute decline. -PT assessment -Neurology consult -OP Neurologist: Dr. Mendoza #3 WBC: Slightly elevated today 11.5 from 8.6 yesterday. -Monitor CBC for WBC trend -monitor vitals signs for SIRS, evidence of infection #4 possible kidney involvement: Cr 1.3 down from 1.5, BUN 24 down from 32. Urine : rare casts, trace protein, rare bacteria. -Bernardo Catheter -Monitor Chemistry -assess BUN/Cr compared to baseline -PCP contacted for past medical records, not received as of 12/29/16PM -PCP Dr. Ozzy Mcallister -Continue on home meds -regular diet as tolerated, supervise eating -elevate head of bed to minimize risk of aspiration -assess for d/c placement [facility] 01/03/17 1203: Attending MD Review Statement Attending Sign Off Attending Cosign Statement: I have: examined this patient, reviewed [facility] EMR data, personally reviewd images, discussd w/resident/PA/SOLDERING TECHNICIAN, discussed mgmt plan w/nicholas, discussed mgmt plan w/CM, discussed mgmt plan w/pt, agreed w/resident/PA/SOLDERING TECHNICIAN, amended to note.
--- NOTE | 2016-12-29 10:31 | Discharge Summary ---
See Addendum Visit Information Visit Dates Admission Date: 12/28/16 Discharge Date: 12/30/16 Hospital Course Course Attending Physician: ОЛЕГ GAMBLE M.D Primary Care Physician: LIAL CORTEZ Hospital Course: Moiz is an 86-year-old man with a medical history of frontotemporal dementia hypertension basal cell skin cancer BPH anemia and question of ?TIA versus CVA in the past was admitted for multiple falls attributed to advancing dementia and mechanical instability. He has had multiple ecchymoses and skin abrasions that resulted in mild bleeding. Apparently his condition has been progressively declining over a period of many months, he is also decreased by mouth mouth intake, inappropriate behavior and emotional responses urinary incontinence, visual hallucinations. CAT scan of the head maxillofacial, chest, cervical spine abdomen pelvis was obtained in the ER. There was no gross intracranial abnormality, volume loss was seen with small ischemic vascular changes. No maxillofacial fracture. No acute fracture or malalignment of the C-spine. L2 compression reformatted deformity appears to be chronic. Changes consistent with COPD seen on chest CT-no evidence of lymphadenopathy. He does have a distended urinary bladder with enlarged prostate. His initial hemoglobin was 6.8, he received 2 units of packed red blood cell transfusion and his hemoglobin is now 9. The illness and unreliable informant at baseline and cannot provide any meaningful history. PT evaluation will determine his needs, which will likely be acute rehabilitation the short-term, and will likely need long-term placement. He requires 100% assistance with feeding, but is tolerating a normal diet. Anemia workup is obtained. Psychiatry consultation requested to determine optimal therapy for behavioral outbursts, and need for long-term placement geriatric psychiatry. While admitted, the patient continued to send down at nighttime and in the early education teacher. His mirtazapine was increased, and we have started him on Zyprexa at bedtime as needed, as well as trazodone at bedtime scheduled to help control his delirium. In addition he is having some urethral bleeding likely from Nicole trauma. Ideally would like to try and start the patient on alpha 1 vanessa such as Flomax in addition to his home medication of finasteride witht the hope of possibly removing the nicole catheter. If the nicole catheter remains in place, he will need voiding trials once DC to facility and outpatient urology evaluation. Please note, that CT chest revealed extensive COPD changes with a few scattered somewhat nodular appearing areas of groundglass opacity without evidence of lymphadenopathy that will require follow up with the patient'ts primary care doctor and a conversation should be had about goals of care. Problems: Progressive fronto-temporal dementia Multiple falls Anemia requiring transfusion BPH Allergies: Coded Allergies: Penicillins (RASH, HIVES 05/09/16) bacitracin (From NEOSPORIN ([id number])) (RASH 05/09/16) latex (RASH 05/09/16) neomycin (From NEOSPORIN ([id number])) (RASH 05/09/16) polymyxin B (From NEOSPORIN ([id number])) (RASH 05/09/16) Disposition Summary Disposition Principal Diagnosis: See hospital course Additional Diagnosis: See hospital course Discharge Disposition: rehabilitation Discharge Instructions General Discharge Information Code Status: Do Not Resucitate/Intubat Patient's Diet: Regular diet - mech soft, with honey thickened liquids and ENSURE with meals - requiring full assistance with feeding Patient's Activity: Self-limited Follow-Up Instructions/Appts: Follow-up with primary medical doctor Medications at Discharge Discharge Medications: Stop taking the following medications: Mirtazapine (Mirtazapine) 15 MG TABLET ORAL Every night Continue taking these medications: Cholecalciferol (Vitamin D3) (Vitamin D3) 400 UNIT TABLET 2 Tablet ORAL DAILY Comments: DOCUMENTED PER CMR DURING PRE-SX INTERVIEW Ferrous Sulfate (Feosol) 325 MG (65 MG IRON) TABLET 1 Tablet ORAL DAILY Aspirin (Ecotrin*) 81 MG TABLET. 1 Tablet ORAL DAILY Comments: DOCUMENTED PER CMR DURING PRE-SX INTERVIEW Omeprazole (Omeprazole) 20 MG TABLET.DR 1 Tablet ORAL Every night Comments: DOCUMENTED PER CMR DURING PRE-SX INTERVIEW Finasteride (Finasteride) 5 MG TABLET 1 Tablet ORAL DAILY Comments: DOCUMENTED PER CMR DURING PRE-SX INTERVIEW Atorvastatin Calcium (Lipitor) 40 MG TABLET 1 Tablet ORAL Every night Comments: DOCUMENTED PER CMR DURING PRE-SX INTERVIEW Amlodipine (Norvasc) 2.5 MG TABLET 1 Tablet ORAL Every night Comments: DOCUMENTED PER CMR DURING PRE-SX INTERVIEW Memantine HCl (Namenda XR) 7 MG CAP.SPR.24 1 Tablet ORAL Every Day Qty = 30 Start taking the following new medications: Mirtazapine (Remeron) 15 MG TABLET 22.5 Milligram ORAL Every night Qty = 30 No Refills Trazodone HCl (Trazodone HCl) 50 MG TABLET 25 Milligram ORAL AT BEDTIME Qty = 30 No Refills Olanzapine (Olanzapine) 5 MG TABLET 5 Milligram ORAL AT BEDTIME Qty = 30 No Refills Doxazosin (Cardura) 1 MG TABLET 1 Milligram ORAL AT BEDTIME Qty = 30 No Refills Copies To: LILA CORTEZ; ОЛЕГ GAMBLE M.D
--- NOTE | 2016-12-29 10:34 | Patient Discharge Instructions ---
Discharge Instructions General Discharge Information You were seen/treated for: MECHANICAL FALLS PROGRESSIVE DEMENTIA ANEMIA REQUIRING BLOOD TRANSFUSION Watch for these problems: SHORTNESS OF BREATHE, DECREASED ENERGY/LETHARGY, CHEST PAIN, MORE FALLS Diet Continue normal diet: Yes Acute Coronary Syndrome Inclusion Criteria At DC or during hospital stay patient has or had the following: ACS DIAGNOSIS No Discharge Core Measures Meds if any: Prescribed or Continued at Discharge Meds if any: NOT Prescribed or Continued at Discharge Congestive Heart Failure Inclusion Criteria At DC or during hospital stay patient has or had the following: CHF DIAGNOSIS No Discharge Core Measures Meds if any: Prescribed or Continued at Discharge Meds if any: NOT Prescribed or Continued at Discharge Cerebrovascular accident Inclusion Criteria At DC or during hospital stay patient has or had the following: CVA/TIA Diagnosis No Discharge Core Measures Meds if any: Prescribed or Continued at Discharge Meds if any: NOT Prescribed or Continued at Discharge Venous thromboembolism Inclusion Criteria VTE Diagnosis No VTE Type NONE VTE Confirmed by (Test) NONE Discharge Core Measures - Per Current guidelines, there needs to be overlap - treatment for the first 5 days of Warfarin therapy. - If discharged on Warfarin prior to 5 days of - overlap therapy, the patient will need to be - assessed for post discharge needs including - *Post discharge parental anticoagulation - *Warfarin and/or parental anticoagulation education - *Follow up date to check INR post discharge At least 5 days overlap therapy as Inpatient No Meds if any: Prescribed or Continued at Discharge Note: Overlap Therapy is Warfarin and Anticoagulant Meds if any: NOT Prescribed or Continued at Discharge
[2016-12-29 14:00] VITALS: BP 134/56
--- NOTE | 2016-12-29 14:27 | NUR ---
wound care: requested by nursing to eval pt for multiple areas of skin alteration PRESENT ON ADMISSION to scalp, ears, and extremities and back - 86 yo poor historian due to demetia - [facility] reviewed - + skin CA whom has required excisions with plastics in past - pt presents with multiple areas as noted below: scalp wounds presumed combination from falls and skin CA lesions 4x3 cm, 4x5 cm, 6x3 cm, 5 x 2 cm all with dry desicated bloody scabbed patches right ear 3x1 cm full thicnkness lesion scabbed area presumed skin CA - right cheek 4x5 cm ecchymotic area s/p fall - mid back 7x1 cm full thicnkess wound unstageable linear wound with white slough at center with periwound erythema - unknown at this present if wounds related to fall with abrasion vs pressure - right anterior leg wound multiple scabbed areas along anterior aspect of lower ext recommendation: cleanse right leg with ns fb xeroform gauze and dpd daily - apply bacitracin ointment to scalp wounds daily - cleanse back wounds with ns fb hydrocolloid cgf dressing q 3 days and prn - obtain group 2 mattress please
[2016-12-29 22:34] VITALS: BP 132/64
[2016-12-30 07:28] VITALS: BP 142/73
--- NOTE | 2016-12-30 07:37 | NUR ---
NURSING NOTE: ASSUMED CARE OF PT. PT DROUSY, REPSONDS TO HIS NAME BUT PT NOT MAKING SENSE. PT PULLED OUT IV DESPITE HAVING BILAT WRIST RESTRAINTS.PT ATTEMPTING TO PULL BAUER. WRIST RESTRAINTS RE PLACED; AM CARE GIVEN. DEEP NAVARRO CALLED AND TO ASSESS PT. BED ALARM IN PLACE. OK PER LUTHER TO LEAVE IV OUT AT THIS TIME. CONT TO MONITOR.
--- NOTE | 2016-12-30 07:59 | PN- Housestaff ---
ANUP LONG MD 12/30/16 0758: Subjective Follow-up For: Failure to thrive Acute anemia Recurrent falls ?ANA MARIA Subjective: Patient seen and examined. He is seen lying upright in bed resting comfortably. He appears confused, but in no acute distress. He is altered at baseline intermittently, presently he is aware that he is at [facility] and believes the year is 2013. When asked if he slept well last night or if he is in any pain he becomes tangential. Further subjective complaints are difficult to obtain due to baseline mental status. Review of systems is unobtainable. Overnight patient was reportedly agitated and was pulling at his Bernardo catheter for which bilateral upper extremity soft restraints were ordered after patient was assessed. Review of Systems Constitutional: Reports: see HPI. Objective Last 24 Hrs of Vital Signs/I&O Vital Signs Date Time Temp Pulse Resp B/P B/P Pulse O2 O2 Flow FiO2 Mean Ox Delivery Rate 12/30 0904 98.0 74 26 126/78 93 Room Air 12/30 0728 97.7 75 20 142/73 94 Room Air 12/30 0000 Room Air 12/29 2234 97.8 80 20 132/64 96 Room Air 12/29 1400 98.5 70 20 134/56 95 Room Air 12/29 1142 Room Air Intake & Output 12/30 1600 12/30 0800 12/30 0000 Intake Total 540 220 Output Total 250 625 Balance 290 -405 Intake, IV 300 100 Intake, Oral 240 120 Number 0 Bowel Movements Output, Urine 250 625 Physical Exam General Appearance: No Acute Distress Other Physical Findings: General -thin/frail elderly man confused but in no acute distress HEENT - NCAT, PERRL, EOMI, anicteric sclera Cardio - S1, S2 w/o murmurs/gallops/rubs Resp - CTA bilaterally w/o wheezing/rhochi/crackles GI - soft, nontender, nondistended, bowel sounds present Neuro - Awake and alert, CN II - XII grossly intact oriented to place and believes it is 2013 Extremities -normal pulses, no cyanosis/clubbing/edema Skin-multiple bruises in various stages of healing with scant amount of bleeding secondary to picked scabs Current Medications: Current Medications Sig/Zhane Start time Last Medication Dose Route Stop Time Status Admin Acetaminophen 325 MG Q6P PRN 12/28 2044 AC PO Atorvastatin Calcium 40 MG QPM 12/28 2199 AC 12/29 PO 2110 Bisacodyl 10 MG ONCE PRN 12/29 1015 DC NC 12/29 1100 Dextrose/Sodium 1,000 ML Q20H 12/29 2100 AC 12/29 Chloride IV 12/30 Docusate Sodium 100 MG DAILY 12/29 1016 AC 12/29 PO 122 Finasteride 5 MG DAILY 12/28 1930 AC 12/29 PO 0841 Memantine 5 MG BID 12/29 1000 AC 12/29 PO 2110 Mirtazapine 15 MG QPM 12/28 2199 AC 12/29 PO 2110 Polyethylene Glycol 17 GM DAILY 12/29 1016 AC 12/29 PO 122 Senna/Docusate Sodium 2 TAB DAILY 12/30 1000 AC PO Last 24 Hrs of Lab/Wil Results Last 24 Hrs of Labs/Mics: Laboratory Tests 12/30/16 0610: Anion Gap 11, Estimated GFR 52 L, BUN/Creatinine Ratio 15.4, CBC w Diff NO MAN DIFF REQ, RBC 3.18 L, MCV 93.3, MCH 30.8, RDW 16.6 H, MPV 8.4, Gran % 87.9 H, Lymphocytes % 6.4 L, Monocytes % 5.0, Eosinophils % 0.3, Basophils % 0.4, Absolute Granulocytes 8.7 H, Absolute Lymphocytes 0.6 L, Absolute Monocytes 0.5, Absolute Eosinophils 0, Absolute Basophils 0, PUBS MCHC 33.0 Assessment/Plan Assessment: 86 year old gentleman from home with a PMH of frontotemporal dementia, HTN, CVA, Basal Cell Cancer, BPH, HLD brought by son for recurrent falls, increasing weakness and decreased PO intake. On admission H/H was found to be 6.7/20.1, imaging r/o acute intracranial abnormality, maxillofacial/ c-spine fracture. He currently s/p 2 units PRBC transfusion. Hospital day 2 Overnight patient was reportedly agitated and confused, and was pulling at his Bernardo catheter. Soft bilateral upper extremity restraints were placed. Patient was assessed this morning at insistence of nursing staff for which restraints were discontinued and the patient safety monitor was ordered. Patient was reportedly seen to be "gasping for air" for which an EKG and stat portable chest x-ray was ordered of which both were unremarkable. Hemoglobin/hematocrit has improved today and renal function remains unchanged. Patient is to be converted from observation to inpatient admission with ultimate discharge to a care facility. Problem list: -Acute blood loss anemia -Acute kidney injury -Multiple trauma status post mechanical fall -History of frontotemporal dementia -Basal cell cancer -BPH -Hypertension -Hyperlipidemia Plan: -Admit to general medicine -Monitor vital signs for hemodynamic instability -Maintain hemoglobin >8.0, transfuse as needed -Patient safety monitor -Daily CBC -guaiac all stools -Continue home medications -PT evaluation -Regular diet -DVT prophylaxis -DNR/DNI Problem List: 1. Anemia 2. Dementia Pain Ratin Pain Location: See assessment Pain Goal: Pain 4 or less Pain Plan: See assessment Tomorrow's Labs & Rationales: CBC-acute blood loss anemia Serum chemistry-acute kidney injury DALTON NAVARRO,[facility] 12/30/16 1249: Attending MD Review Statement Attending Statement Attending MD Statement: examined this patient, discuss w/resident/PA/MERCHANDISER RETAIL REPRESENTATIVE, agreed w/resident/PA/MERCHANDISER RETAIL REPRESENTATIVE, discussed with family, reviewed EMR data (avail), discussed with nursing, discussed with case mgmt, reviewed images, amended to note Attending Assessment/Plan: Patient resting comfortably in bed. Not in any distress. Morning event noted. Monitor the patient, has a sitter because of his agitation. Sitter can be discontinued if there are no other events. Avoid restraints. Chest x-ray, blood work and EKG negative for any significant finding. We'll monitor for now. If patient stable throughout the day today, can plan for discharge tomorrow
--- NOTE | 2016-12-30 08:00 | NUR ---
NURSING NOTE: PT WITH MULTIPLE AREAS OF SKIN ALTERATION, AWAITING WOUND ORDERS FROM SCIENCE LIAISON, PT SEEN BY WOUND CARE NURSE YESTERDAY, MULTIPLE SCANBS TO HEAD, EARS, LEGS, OPEN AREAS TO BACK, BRUISING TO FACE AND R HIP/THIGH AREA. PT ON SIZEWISE MATTRESS, PT UNABLE TO OPEN R EYE. ANDERW SCIENCE LIAISON AWARE.HX MULTIPLE FALLS AT HOME.
[2016-12-30 08:08] LABS: ABSOLUTE BASOPHIL COUNT 0 /CUMM (0.0-0.2); ABSOLUTE EOSINOPHIL COUNT 0 /CUMM (0.0-0.7); ABSOLUTE GRANULOCYTE CT 8.7 /CUMM (1.4-6.5); ABSOLUTE LYMPH COUNT 0.6 /CUMM (1.2-3.4); ABSOLUTE MONOCYTE COUNT 0.5 /CUMM (0.10-0.60); BASOPHIL % 0.4 % (0.0-2.0); EOSINOPHIL % 0.3 % (0-5); HEMATOCRIT 29.7 % (42-52); MEAN CORPUSCULAR HGB 30.8 PG (27.0-31.0); MEAN CORPUSCULAR VOLUME 93.3 FL (80.0-94.0); MEAN PLATELET VOLUME 8.4 FL (7.4-10.4); PLATELET COUNT 224 /CUMM (130-400); RBC DISTRIBUTION WIDTH 16.6 % (11.5-14.5); RED BLOOD CELL CT 3.18 /CUMM (4.70-6.10); WHITE BLOOD CELL COUNT 9.9 /CUMM (4.8-10.8)
--- NOTE | 2016-12-30 08:44 | NUR ---
NURSING NOTE: PT SLEEPING AT THIS TIME, AM DEEP DARLING AWARE, AWAITING SWALLOW EVAL. BED ALARM IN PLACE. CONT TO MONITOR.
[2016-12-30 09:04] VITALS: BP 126/78
--- NOTE | 2016-12-30 09:04 | NUR ---
NURSING NOTE: PT BREATHING HEAVY, O2 SATS ON ROOM AIR 93-95%, RR 26. 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 PT STATES "I CANT BREATHE" BP 126/78, HR 74. O2 2L NC PLACED 98%, R.T CALLED, PATIENT SAFETY MONITOR. PCXR ORDERED, MD TO ORDER EKG, CONT TO MONITOR.MD TO CALL PTS FAMILY.
--- NOTE | 2016-12-30 09:05 | NUR ---
NURSING NOTE: NURSING DIRECTOR BUSINESS INTELLIGENCE DENTON AWARE THAT BILAT WRIST RESTRAINTS REMOVED AND PATIENT SAFETY MONITOR IN PLACE FOR HIGH FALL RISK AND CONFUSION. CONT TO MONITOR.
[2016-12-30 09:29] LABS: GRANULOCYTE % 87.9 % (42.2-75.2)
--- NOTE | 2016-12-30 09:50 | NUR ---
NURSING NOTE: SHAWNEE PERES AT BEDSIDE, PER MD "THIS IS PATIENTS BASELINE" AM CARE GIVE, PT REPOSITIONED WITH PILLOWS, APPEARS COMFORTABLE AT THIS TIME, PT RESTING IN BED, PT NO LONGER SAYING HE CANT BREATHE" NO LONGER WITH HEAVY RESPIRATIONS, NOT TRYING TO GET OOB AT THIS TIME. BED ALARM IN PLACE, PATIENT SAFETY MONITOR PER MD ORDER. CONT TO MONITOR.
--- NOTE | 2016-12-30 09:59 | Event Note ---
Event Note Event Note: Called by RN because RN says patient 'looks terrible'. She has placed him in 2L of Oxygen via NC for subjective 'gasping of air'. He is 95% on RA. Pt evaluated at bedside, he appears to be at his baseline mentation status, opens eyes, tracks objects, and grumbles indescernible answers - unchanged from evaluation on admission, and reevaluation on 12/29/16. His breathing is controlled, and he doesnt appear to be in any distress. He is bleeding from scabs that appear freshly picked at. He is unreliable informant, but upon review of VS (98*F, 74HR, 126/78, 95%RA), and labs he appears to be completely stable. HS present, and lungs are CTABL. He is not on any medications that would lead to increased bleeding. We have asked that restraints be discontinued, and a sitter be placed for frequent reorientation. We will continue to follow his clinical status, and ask that supplemental oxygen only be provided to treat real hypoxia. Plan of care discussed in detail with RN.
--- NOTE | 2016-12-30 10:22 | RADIOLOGY REPORT ---
EXAMINATION: XR PORTABLE CHEST CLINICAL INFORMATION: Altered mental status, labored breathing and recent fall at home. COMPARISON: Chest CT from 12/28/2016. TECHNIQUE: Portable AP view of the chest was obtained. FINDINGS: Lungs are well expanded and upper lobes relatively lucent from emphysematous disease. The scattered groundglass pulmonary opacities observed on the recent chest CT are difficult to radiographically detect. 0.4 cm nodule is present in the left midlung. No pulmonary edema. Trace right pleural effusion. Cardiac silhouette is mildly enlarged. Atherosclerotic calcification of the aorta. Subacute and acute right rib fractures are more clearly depicted on the recent chest CT exam, and findings include a moderately displaced, acute fracture of the right lateral ninth rib. IMPRESSION: 1. Mild cardiomegaly without pulmonary edema. 2. Scattered groundglass pulmonary opacities observed on the recent chest CT are difficult to radiographically detect. 3. Subacute and acute right rib fractures. Trace right pleural effusion.
--- NOTE | 2016-12-30 10:36 | NUR ---
NURSING NOTE: PT CHNAGED FROM 23 HOUR HOLD TO FULL ADMIT, SEE ASSESSMENTS, CONT TO MONITOR/
--- NOTE | 2016-12-30 11:03 | NUR ---
NURSING NOTE: LASHON ATTEDNING AT BEDSIDE, AWARE OF ABOVE. PT SLEEPING AT THIS TIME, PATIENT SAFETY MONITOR IN PLACE, BED ALARM IN PLACE CONT TO MONITOR.
--- NOTE | 2016-12-30 12:49 | NUR ---
NURSING NOTE: PT ASKING FOR O2 TO BE REMOVED "I CAN BREATH GOOD NOW" ROOM AIR 95%, O2 DCD. PATIENT SAFETY MONITOR AT BEDSIDE. CONT TO MONITOR.
--- NOTE | 2016-12-30 13:00 | NUR ---
NURSING NOTE: PT ABLE TO TAKE CRUSHED TYLENOL WITH APPLESAUCE BUT LUNCH TRAY HELD DUE TO PTS CONFUSION AND DROUSINESS. SWALLOW MAGGIE DIAZ, IVF PER MD ORDER. SON STATES "I USUALLY BREAK HIS PILLS IN HALF AND GIVE HIM PUREED SOUPS THROUGH A STRAW BUT RECENTLY HE HASNT BEEN DRINKING IT BECAUSE I THINK HE CANT" ANUP SHELTON MADE AWARE. AWAITING WOUND CARE ORDERS FROM OFFICE CLEANER; CONT TO MONIOTOR. PATIENT SAFETY MONITOR IN PLACE.
--- NOTE | 2016-12-30 14:09 | NUR ---
PHYSICAL THERAPY-Pt TX CANCELED TODAY AT RECOMMENDATION OF NRSG, Pt DEEMED INAPPROPRIATE FOR ACTIVITY, WILL CONTINUE TO FOLLOW AND PROVIDE TX APPROP
[2016-12-30 14:32] VITALS: BP 159/59
--- NOTE | 2016-12-30 16:28 | Cons- Psychiatry ---
Psychiatric Consult Date of Consult: 12/30/16 Reason for Consult: dementia History of Present Illness: 86 y/o man w/ hx frontotemporal dementia, HTN, CVA, basal cell ca, BHP, brought in for recurrent falls,worsenign mental status. He is barely verbal, oriented to hospital and to self; aware that his family and their names, was at bedside, but otherwise having significant difficulty answering questions. Family stated that he has deteriorated, multiple falls over the last weeks, was living w/ his son. No psychiatric hx per them; had seen a psychiatrist in a previous home for behavioral issues but no primary psychiatric hx prior to the dementia. Is on namenda, 15mg remeron. No suicide attempts, hallucination hx. Behaviorally has been pulling on skin scabs, pulling out nicole, pulling out IVs. Was in restraints last night. Has sitter currently. Family is making medical decisions for him. MSE: cachectic man, multiple skin scabs and bruises; abrasions (picking at them per family). Oriented to self and hospital, knows his family member names; repeating that he wants soup, mildly irritated but redirected by sitter. Thought process and content both impoverished. Insight absent and judgment poor. Dx: unspecified cognitive d/o. Rec: increase night time remeron to 22.5mg; monitor for excess sedation (can consider increasing again to 30mg in several days). Olanzapine 2.5mg q12hrs PRN agitation/aggression orally discussed w/ family risk of increased c/v morbidities w/ antipsychotics; vs. increased risk of fall w/ bz; and other options antidepressants or mood stabilizers can also be considered antidepressant would take some time to work, mood stabilizer for outburts could be an option but also would take some time to work. Discussed sedation, dizziness as main risks acutely for olanzapine. Would do PRN and see whether the medication works prior to standing doses. Regular CL team will see on Sunday; if any beh issues/need further recs can call prior to that. Continue sitter. Allergies: Coded Allergies: Penicillins (RASH, HIVES 05/09/16) bacitracin (From NEOSPORIN ([id number])) (RASH 05/09/16) latex (RASH 05/09/16) neomycin (From NEOSPORIN ([id number])) (RASH 05/09/16) polymyxin B (From NEOSPORIN ([id number])) (RASH 05/09/16) Past History Past Medical History Neurological: dementia EENT: NONE Cardiovascular: hypertension Respiratory: NONE Gastrointestinal: NONE Hepatic: NONE Renal: urinary incontinence Musculoskeletal: NONE Psychiatric: NONE Endocrine: NONE Blood Disorders: NONE Cancer(s): SKIN CANCER ADDICTION SOCIAL WORKER/Reproductive: NONE Past Surgical History Surgical History: non-contributory Assessment/Plan Mental Status Orientation: Confused, Person, Place
[2016-12-30 23:19] VITALS: BP 150/72
--- NOTE | 2016-12-31 03:15 | NUR ---
PT INCREASINGLY AGITATED, PULLING IV LINE AND BAUER. KRISTI SOFT RESTRAINTS ORDERED. WILL CONTINUE TO MONITOR.
--- NOTE | 2016-12-31 07:33 | NUR ---
NURSING NOTE: BILAT WRIST RESTRAINTS REMOVED. NO ATTEMPTS TO PULL BAUER OR IV AT THIS TIME, PATIENT SAFETY MONITOR IN PLACE. CONT TO MONITOR.
[2016-12-31 07:46] VITALS: BP 165/89
--- NOTE | 2016-12-31 08:07 | PN- Housestaff ---
ANUP LONG MD 12/31/16 0807: Subjective Follow-up For: Failure to thrive Acute anemia Recurrent falls ?ANA MARIA Subjective: Patient seen and examined. He is seen sitting upright in bed resting comfortably. He appears to be mildly confused and disoriented, but in no acute distress. At his bedside is a patient safety monitor that states patient was agitated overnight for which bilateral upper extremity soft restraints were ordered for pulling at his IV and nicole. He was given olanzapine for his agitation this morning and is very somnolent. Review of systems is unobtainable. No overnight events reported other than above. Review of Systems Constitutional: Reports: see HPI. Objective Last 24 Hrs of Vital Signs/I&O Vital Signs Date Time Temp Pulse Resp B/P B/P Pulse O2 O2 Flow FiO2 Mean Ox Delivery Rate 12/31 0815 78 150/84 12/31 0746 97.6 77 18 165/89 95 Room Air 12/30 2319 98.8 72 18 150/72 95 Room Air 12/30 1432 96.5 65 20 159/59 98 Room Air Intake & Output 12/31 1600 12/31 0800 12/31 0000 Intake Total 400 900 Output Total 200 Balance 400 700 Intake, IV 400 400 Intake, Oral 500 Number 1 1 Bowel Movements Output, Urine 200 Physical Exam General Appearance: No Acute Distress Other Physical Findings: General -thin/frail elderly man confused but in no acute distress HEENT - NCAT, PERRL, EOMI, anicteric sclera Cardio - S1, S2 w/o murmurs/gallops/rubs Resp - CTA bilaterally w/o wheezing/rhochi/crackles GI - soft, nontender, nondistended, bowel sounds present Neuro - Awake and alert, CN II - XII grossly intact oriented to place and believes it is 2014 Extremities -normal pulses, no cyanosis/clubbing/edema Skin-multiple bruises in various stages of healing with scant amount of bleeding secondary to picked scabs Current Medications: Current Medications Sig/Zhane Start time Last Medication Dose Route Stop Time Status Admin Acetaminophen 325 MG Q6P PRN 12/28 2044 AC 12/31 PO 0642 Atorvastatin Calcium 40 MG QPM 12/280 AC 12/30 PO 205 Dextrose/Sodium 1,000 ML Q20H 12/29 2100 DC 12/29 Chloride IV 04/1658 Docusate Sodium 100 MG DAILY 12/29 1016 AC 12/29 PO 1227 Finasteride 5 MG DAILY 12/28 1930 AC 12/29 PO 0841 Memantine 5 MG BID 12/29 1000 AC 12/30 PO 2055 Mirtazapine 22.5 MG QPM 12/30 2199 AC 12/30 PO 2055 Mirtazapine 15 MG QPM 12/28 220 DC 12/29 PO 2110 Olanzapine 10 MG ONCE ONE 12/31 0030 DC IM 12/31 003 Olanzapine 2.5 MG BID PRN 12/30 1745 AC 12/31 PO 0642 Polyethylene Glycol 17 GM DAILY 12/29 1016 AC 12/29 PO 122 Senna/Docusate Sodium 2 TAB DAILY 12/30 1000 AC PO Last 24 Hrs of Lab/Wil Results Last 24 Hrs of Labs/Mics: Laboratory Tests 12/31/16 0610: Anion Gap 11, Estimated GFR > 60, BUN/Creatinine Ratio 17.3, CBC w Diff NO MAN DIFF REQ, RBC 3.44 L, MCV 93.6, MCH 30.8, RDW 16.6 H, MPV 8.4, Gran % 87.3 H, Lymphocytes % 6.4 L, Monocytes % 6.0, Eosinophils % 0.1, Basophils % 0.2, Absolute Granulocytes 10.1 H, Absolute Lymphocytes 0.7 L, Absolute Monocytes 0.7 H, Absolute Eosinophils 0, Absolute Basophils 0, PUBS MCHC 32.9 L Assessment/Plan Assessment: 86 year old gentleman from home with a PMH of frontotemporal dementia, HTN, CVA, Basal Cell Cancer, BPH, HLD brought by son for recurrent falls, increasing weakness and decreased PO intake. On admission H/H was found to be 6.7/20.1, imaging r/o acute intracranial abnormality, maxillofacial/ c-spine fracture. He currently s/p 2 units PRBC transfusion. Hospital day 3 Patient was again agitated and confused over night for which restraints were again ordered for patient pulling at his IV and nicole. Olanzapine was not given at this time for unclear reasons. He was given a dose this morning and was observed to be somnolent and more calm. Restraints were discontinued but nicole and patient safety monitor were renewed. Problem list: -Acute blood loss anemia -Acute kidney injury -Multiple trauma status post mechanical fall -History of frontotemporal dementia -Basal cell cancer -BPH -Hypertension -Hyperlipidemia Plan: -Admit to general medicine -Monitor vital signs for hemodynamic instability -Maintain hemoglobin >8.0, transfuse as needed -Patient safety monitor -Olazapine 2.5mg PO Q12H PRN - agitation -Daily CBC -guaiac all stools -Continue home medications -PT evaluation -Regular diet -DVT prophylaxis -DNR/DNI Problem List: 1. Symptomatic anemia Pain Ratin Pain Location: None Pain Goal: Remain pain free Pain Plan: See assessment Tomorrow's Labs & Rationales: CBC - leukocytosis BEP - renal function DALTON NAVARRO,[facility] 12/31/16 1614: Attending MD Review Statement Attending Statement Attending MD Statement: examined this patient, discuss w/resident/PA/ASSISTANT TEACHER PRIMARY, agreed w/resident/PA/ASSISTANT TEACHER PRIMARY, discussed with family, reviewed EMR data (avail), discussed with nursing, discussed with case mgmt, reviewed images, amended to note Attending Assessment/Plan: Patient resting comfortably in bed. Not in distress. Had restrains overnight because he was agitated, was started on Zyprexa by psych did receive intramuscular Zyprexa following which he calmed down. Avoid restraints. Continue sitter protocol. Patient may need [place] psych unit because of his worsening dementia and behavioral issues. Discontinue Nicole, as it is placed in the ER, patient has history of BPH but no history of Nicole the past so kindly DC the Nicole, as it may be one of the cause of his discomfort and delirium.
[2016-12-31 08:15] VITALS: BP 150/84
[2016-12-31 09:07] LABS: ABSOLUTE BASOPHIL COUNT 0 /CUMM (0.0-0.2); ABSOLUTE EOSINOPHIL COUNT 0 /CUMM (0.0-0.7); ABSOLUTE GRANULOCYTE CT 10.1 /CUMM (1.4-6.5); ABSOLUTE LYMPH COUNT 0.7 /CUMM (1.2-3.4); ABSOLUTE MONOCYTE COUNT 0.7 /CUMM (0.10-0.60); BASOPHIL % 0.2 % (0.0-2.0); EOSINOPHIL % 0.1 % (0-5); HEMATOCRIT 32.2 % (42-52); MEAN CORPUSCULAR HGB 30.8 PG (27.0-31.0); MEAN CORPUSCULAR HGB CONC 32.9 G/DL (33.0-37.0); MEAN CORPUSCULAR VOLUME 93.6 FL (80.0-94.0); MEAN PLATELET VOLUME 8.4 FL (7.4-10.4); PLATELET COUNT 243 /CUMM (130-400); RBC DISTRIBUTION WIDTH 16.6 % (11.5-14.5); RED BLOOD CELL CT 3.44 /CUMM (4.70-6.10); WHITE BLOOD CELL COUNT 11.6 /CUMM (4.8-10.8)
[2016-12-31 10:06] LABS: GRANULOCYTE % 87.3 % (42.2-75.2)
--- NOTE | 2016-12-31 12:50 | NUR ---
NURSING NOTE: PT DROUSY/AROUSABLE, PATIENT SAFTEY MONITOR AT BEDSIDE BECAUSE PT STILL OCCASIONALLY MAKING ATTEMPTS OOB AND REMAINS CONFUSED. PT REFUSING TO EAT "IM NOT HUNGRY" AM MEDS HELD BECAUSE OF DROUSINESS, ANUP SERVICE DESK DIRECTOR AWARE. CONT TO MONITOR.
[2016-12-31 14:23] VITALS: BP 134/66
--- NOTE | 2017-01-01 03:45 | NUR ---
ATTEMPTED TO STRAIGHT CATH, OBSTRUCTION MET, BRIGHT RED BLOOD. ABLE TO PLACE BAUER WITHOUT DIFFICULTY, DRAINING BLOOD TINGED THEN CLEAR,. DR. CHAKRABORTY NOTIFIED. BAUER TO REMIAN IN PLACE AT THIS TIME. SENT
[2017-01-01 06:15] VITALS: BP 132/84
--- NOTE | 2017-01-01 07:50 | PN- Housestaff ---
ROSA ENCINAS 01/01/17 0750: Subjective Follow-up For: Frontotemporal dementia BPH Recurrent falls Decreased PO intake Subjective: Seen and examined patient, answers simple questions. bit lethargic. Overnight events noted. Was given IM Review of Systems Constitutional: Reports: see HPI. Objective Last 24 Hrs of Vital Signs/I&O Vital Signs Date Time Temp Pulse Resp B/P B/P Pulse O2 O2 Flow FiO2 Mean Ox Delivery Rate 01/01 0615 99.0 74 20 132/84 95 Intake & Output 01/01 1600 01/01 0800 01/01 0000 Intake Total 70 600 Output Total 400 200 Balance -330 400 Intake, Oral 70 600 Output, Urine 400 200 Physical Exam General Appearance: No Acute Distress, lethargic Skin: scabs on right ear, b/l arms and legs Cardiovascular: Normal S1, Normal S2 Lungs: Normal Air Movement Abdomen: Normal Bowel Sounds, Soft Extremities: No Edema Current Medications: Current Medications Sig/Zhane Start time Last Medication Dose Route Stop Time Status Admin Acetaminophen 325 MG Q6P PRN 12/28 2045 AC 12/31 PO 0642 Atorvastatin Calcium 40 MG QPM 12/28 2200 AC 12/31 PO 2217 Ceftriaxone Sodium 1,000 MG DAILY 01/02 1000 AC IV Ceftriaxone Sodium 1,000 MG ONCE ONE 01/01 1145 DC 01/01 IV 01/01 1146 1205 Docusate Sodium 100 MG DAILY 12/29 1016 AC 01/01 PO 1155 Doxazosin Mesylate 1 MG AT BEDTIME 01/01 2200 AC PO Finasteride 5 MG DAILY 12/28 1930 AC 01/01 PO 1201 Memantine 5 MG BID 12/29 1000 AC 01/01 PO 1153 Mirtazapine 22.5 MG QPM 12/30 2200 AC 12/31 PO 2217 Olanzapine 5 MG AT BEDTIME 01/01 2200 AC PO Olanzapine 5 MG ONCE ONE 01/01 0615 DC 01/01 IM 01/01 0616 0624 Olanzapine 2.5 MG BID PRN 12/30 1745 DC 01/01 PO 0116 Polyethylene Glycol 17 GM DAILY 12/29 1016 AC 12/29 PO 1227 Senna/Docusate Sodium 2 TAB DAILY 12/30 1000 AC PO Trazodone HCl 25 MG AT BEDTIME 01/01 2200 AC PO Last 24 Hrs of Lab/Wil Results Last 24 Hrs of Labs/Mics: Laboratory Tests 01/01/17943: Urinalysis LIGHT H, Urine Color YEL, Urine Clarity CLDY H, Urine pH 7.0, Ur Specific [place] 1.025, Urine Protein 100 H, Urine Ketones NEG, Urine Nitrite POS H, Urine Bilirubin NEG, Urine Urobilinogen 0.2, Ur Leukocyte Esterase MOD H, Ur Microscopic SEDIMENT EXAMINED, Urine RBC >75 H, Urine WBC > 75 H, Urine Bacteria MOD H, Urine Hemoglobin LARGE H, Urine Glucose NEG 01/01/17 0621: Anion Gap 9, Estimated GFR > 60, BUN/Creatinine Ratio 17.0, CBC w Diff NO MAN DIFF REQ, RBC 3.32 L, MCV 93.6, MCH 30.7, RDW 16.0 H, MPV 8.3, Gran % 87.1 H, Lymphocytes % 5.9 L, Monocytes % 6.4, Eosinophils % 0.4, Basophils % 0.2, Absolute Granulocytes 10.0 H, Absolute Lymphocytes 0.7 L, Absolute Monocytes 0.7 H, Absolute Eosinophils 0, Absolute Basophils 0, PUBS MCHC 32.8 L Microbiology 01/02 944 URINE ROUT: Urine Culture - RECD 01/01 034 URINE ROUT: Urine Culture - RECD Assessment/Plan Assessment: 86 year old gentleman from home with a PMH of frontotemporal dementia, HTN, CVA, Basal Cell Cancer, BPH, HLD brought by son for recurrent falls, increasing weakness and decreased PO intake. On admission H/H was found to be 6.7/20.1, imaging r/o acute intracranial abnormality, maxillofacial/ c-spine fracture. He is s/p 2 units PRBC transfusion. Hospital day 4 He was agitated overnight and one dose of Zyprexa was given. He is currently off restraints and has a one-to-one sitter. Problem list: -Acute blood loss anemia -Acute kidney injury -Multiple trauma status post mechanical fall -History of frontotemporal dementia -Basal cell cancer -BPH -Hypertension -Hyperlipidemia Plan: -Admit to general medicine -Avoid delirium tremors -Maintain hemoglobin >8.0, transfuse as needed -Continue safety monitor -Appreciate psychiatry recommendations will continue with Olazapine 2.5mg PO Q12H PRN, Namenda and Remeron -Called and spoke to PCP, patient is only on finasteride, will start him on 1 mg of Cardura for his BPH will keep Bernardo in for now as he continues to have some mild hematuria secondary to instrumentation. -His UA is positive for leukocyte esterase and nitrate which is new compared to his UA on admission. I called and spoke to his son who stated that his allergies penicillin is unknown as it was when he was very young. Patient also tolerated a course of cephalexin earlier this year. In view of his questionable delirium will start him on IV ceftriaxone pending cultures. -Regular mechanical soft diet -DVT prophylaxis -DNR/DNI Problem List: 1. Anemia 2. Dementia Pain Ratin Pain Location: na Pain Goal: Pain 4 or less Pain Plan: current regimen Tomorrow's Labs & Rationales: cbc LUPE NAVARRO,AILYN 01/01/17 1315: Attending MD Review Statement Attending Statement Attending MD Statement: examined this patient, discuss w/resident/PA/BRICK SETTER, agreed w/resident/PA/BRICK SETTER, reviewed EMR data (avail), discussed with nursing, discussed with case mgmt Attending Assessment/Plan: Patient had agitation last night. He is a 86-year-old male with past medical history of dementia who has sundowning and delirium that we are actively managing. At this point the issue is also the possibility of urinary tract infection. He has been having urinary retention and not voiding despite a straight cath protocol. A Bernardo catheter was inserted and because of it having some hematuria, UA & urine culture was sent. His initial UA and urine culture negative and now he has greater than 75 white cells with nitrite positive and esterase positive. Because of his ongoing delirium, and low-grade leukocytosis and a clear-cut positive UA with we are giving him the benefit of doubt and give him IV ceftriaxone. He's pen allergic but per his family has tolerated cephalosporins fine. We are also going to actively titrate his medications for his Delerium and if his urine culture shows a sensitive bug and his delirious issues are better, possible discharge tomorrow to a locked memory unit at a prison.
[2017-01-01 08:04] LABS: ABSOLUTE BASOPHIL COUNT 0 /CUMM (0.0-0.2); ABSOLUTE EOSINOPHIL COUNT 0 /CUMM (0.0-0.7); ABSOLUTE LYMPH COUNT 0.7 /CUMM (1.2-3.4); ABSOLUTE MONOCYTE COUNT 0.7 /CUMM (0.10-0.60); BASOPHIL % 0.2 % (0.0-2.0); EOSINOPHIL % 0.4 % (0-5); GRANULOCYTE % 87.1 % (42.2-75.2); HEMATOCRIT 31.1 % (42-52); MEAN CORPUSCULAR HGB 30.7 PG (27.0-31.0); MEAN CORPUSCULAR HGB CONC 32.8 G/DL (33.0-37.0); MEAN CORPUSCULAR VOLUME 93.6 FL (80.0-94.0); MEAN PLATELET VOLUME 8.3 FL (7.4-10.4); PLATELET COUNT 227 /CUMM (130-400); RED BLOOD CELL CT 3.32 /CUMM (4.70-6.10)
[2017-01-01 09:03] LABS: WHITE BLOOD CELL COUNT 11.4 /CUMM (4.8-10.8)
--- NOTE | 2017-01-01 09:48 | NUR ---
PHYSICAL THERAPY- ATTEMPTED TO SEE PT TODAY, PT CURLED UP IN POSITION IN BED, SLEEPING SOUNDLY W/ SITTER AT BEDSIDE. PT'S RN REQUESTED NOT TO ATTEMPT TO WAKE AT THIS TIME 2* BEHAVIORAL ISSUES WHILE AWAKE. WILL FOLLOW APPROPRIATE.
--- NOTE | 2017-01-01 09:52 | PN- Psychiatry ---
See Addendum Assessment/Plan Impression: Identifying Info: 88-year-old male presents to [facility] emergency department on 12/28/2016 status post multiple falls and increasing lethargy and confusion. Patient has a history of frontotemporal dementia. Lives with his son. SUBJECTIVE (Patient was sedated at time of interview status post 5 mg Zyprexa IM at approximately 0600) Brief ROS Gait: Unobserved Sleep: Poor, altered sleep pattern Appetite: Did not assess OBJECTIVE Mental Status Exam Presentation/Appearance: Hospital garb, lying in bed sleeping. Multiple scabs noted to scalp. Orientation: LATOYA Sensorium: Sedated Eye contact: None Affect: Flat Mood: LATOYA Depression: LATOYA Anxiety: LATOYA Thought Content: LATOYA Thought Process: LATOYA Speech: LATOYA Judgment: Reported impairment Insight: Reported impairment Cognition: Memory: Reported deficits Attention/Concentration: Reported deficits MMSE: LATOYA Per nursing report the patient required IM medication this morning due to attempting to self discontinue his Bernardo catheter and not responding to redirection. Agitation and confusion overnight requiring restraints. He has been pulling on his lines and picking at scabs on his scalp. He is cooperative at times allowing exams upon. He appears to be sundowning and is not sleeping well at night. There is a one-to-one safety monitor in place ASSESSMENT 88-year-old male with a history of neurocognitive disease presents with increasing confusion in the context of multiple falls, anemia, ANA MARIA, and altered sleep pattern. He is difficult to redirect and is often confused and agitated especially during the night. At this point it appears he would benefit from a higher level of psychiatric care versus memory care. Differential diagnosis Frontotemporal dementia Delirium due to multiple etiologies versus continued cognitive decline Suggestion: 1. Please refer patient to geriatric psychiatry. If behaviors and agitation improve he may be more appropriate for a memory care setting. 2. Please order semi-occlusive dressings to areas of excoriation to prevent further tissue damage and reduce the risk for infection. 3. Please order ramelteon 8 mg by mouth daily at bedtime to help regulate circadian rhythm. 4. Continue olanzapine PRN as currently ordered. Continue to monitor EKG and hold medication for QTc greater than 475ms 5. Please order trazodone 12.5 mg PO q 20:00 to reduce sundowning sx. Thank you for including psychiatry in this case we will continue to follow. Subjective Subjective: (as above) Objective Last 24 Hrs of Vital Signs/I&O Vital Signs Date Time Temp Pulse Resp B/P B/P Pulse O2 O2 Flow FiO2 Mean Ox Delivery Rate 01/01 615 99.0 74 20 132/84 95 12/31 1423 98.1 60 18 134/66 96 Room Air Intake & Output 01/01 1600 01/01 0800 01/01 0000 Intake Total 70 600 Output Total 400 200 Balance -330 400 Intake, Oral 70 600 Output, Urine 400 200 Current Medications Sig/Zhane Start time Last Medication Dose Route Stop Time Status Admin Acetaminophen 325 MG Q6P PRN 12/28 2045 AC 12/31 PO 0642 Atorvastatin Calcium 40 MG QPM 12/28 2200 AC 12/31 PO 2217 Docusate Sodium 100 MG DAILY 12/29 1016 AC 12/29 PO 1227 Finasteride 5 MG DAILY 12/28 1930 AC 12/29 PO 0841 Memantine 5 MG BID 12/29 1000 AC 12/31 PO 2217 Mirtazapine 22.5 MG QPM 12/30 2200 AC 12/31 PO 2217 Olanzapine 5 MG ONCE ONE 01/01 0615 DC 01/01 IM 01/01 0616 0624 Olanzapine 2.5 MG BID PRN 12/30 1745 AC 01/01 PO 0116 Polyethylene Glycol 17 GM DAILY 12/29 1016 AC 12/29 PO 1227 Senna/Docusate Sodium 2 TAB DAILY 12/30 1000 AC PO Laboratory Tests 01/01/17 0621: Anion Gap 9, Estimated GFR > 60, BUN/Creatinine Ratio 17.0, CBC w Diff NO MAN DIFF REQ, RBC 3.32 L, MCV 93.6, MCH 30.7, RDW 16.0 H, MPV 8.3, Gran % 87.1 H, Lymphocytes % 5.9 L, Monocytes % 6.4, Eosinophils % 0.4, Basophils % 0.2, Absolute Granulocytes 10.0 H, Absolute Lymphocytes 0.7 L, Absolute Monocytes 0.7 H, Absolute Eosinophils 0, Absolute Basophils 0, PUBS MCHC 32.8 L 12/31/16 0610: Anion Gap 11, Estimated GFR > 60, BUN/Creatinine Ratio 17.3, CBC w Diff NO MAN DIFF REQ, RBC 3.44 L, MCV 93.6, MCH 30.8, RDW 16.6 H, MPV 8.4, Gran % 87.3 H, Lymphocytes % 6.4 L, Monocytes % 6.0, Eosinophils % 0.1, Basophils % 0.2, Absolute Granulocytes 10.1 H, Absolute Lymphocytes 0.7 L, Absolute Monocytes 0.7 H, Absolute Eosinophils 0, Absolute Basophils 0, PUBS MCHC 32.9 L
[2017-01-01 15:28] VITALS: BP 141/76
[2017-01-01 20:44] VITALS: BP 145/63
[2017-01-01 23:33] VITALS: BP 140/70
[2017-01-02 06:51] VITALS: BP 120/84
[2017-01-02 07:48] LABS: ABSOLUTE BASOPHIL COUNT 0 /CUMM (0.0-0.2); ABSOLUTE EOSINOPHIL COUNT 0.1 /CUMM (0.0-0.7); ABSOLUTE GRANULOCYTE CT 8.8 /CUMM (1.4-6.5); ABSOLUTE LYMPH COUNT 0.7 /CUMM (1.2-3.4); ABSOLUTE MONOCYTE COUNT 0.5 /CUMM (0.10-0.60); BASOPHIL % 0.2 % (0.0-2.0); EOSINOPHIL % 0.9 % (0-5); GRANULOCYTE % 86.7 % (42.2-75.2); HEMATOCRIT 30.2 % (42-52); MEAN CORPUSCULAR HGB 30.9 PG (27.0-31.0); MEAN CORPUSCULAR VOLUME 93.7 FL (80.0-94.0); MEAN PLATELET VOLUME 8.3 FL (7.4-10.4); PLATELET COUNT 230 /CUMM (130-400); RBC DISTRIBUTION WIDTH 16.1 % (11.5-14.5); RED BLOOD CELL CT 3.22 /CUMM (4.70-6.10)
[2017-01-02 08:44] LABS: WHITE BLOOD CELL COUNT 10.1 /CUMM (4.8-10.8)
--- NOTE | 2017-01-02 09:20 | NUR ---
NURSING NOTE: BLOOD CULUTRES X2 ORDERED AND DRAWN BY [facility]ST PER MD ORDER, CONT TO MONITOR
--- NOTE | 2017-01-02 10:21 | PN- Psychiatry ---
Assessment/Plan Impression: Identifying Info: 88-year-old male presents to [facility] emergency department on 12/28/2016 status post multiple falls and increasing lethargy and confusion. Patient has a history of frontotemporal dementia. Lives with his son. SUBJECTIVE "Good." Brief ROS Gait: Was ambulated with PT Sleep: Poor, altered sleep pattern Appetite: Staff reports he has been eating OBJECTIVE Mental Status Exam Presentation/Appearance: Hospital garb, lying in bed sleeping. Has great difficulty responding to interview questions appropriately. Multiple scabs noted to scalp. Orientation: + Self, unable to name place, or year Sensorium: Somnolent but easily aroused Eye contact: Poor Affect: Blunted Mood: "good" Depression: LATOYA Anxiety: LATOYA Thought Content: Paucity of content Thought Process: Confused Speech: Mumbled, minimal Judgment: Impaired Insight: Impaired Cognition: Memory: Short term deficits, able to state place and date of Attention/Concentration: Reported deficits MMSE: LATOYA Per nursing report and staff report pt has been calm and cooperative this AM. Decreased behavioral issues but did require redirection last night for picking behaviors and pulling on lines. ASSESSMENT 88-year-old male with a history of neurocognitive disease presents with increasing confusion in the context of multiple falls, anemia, ANA MARIA, altered sleep pattern and possible infection. He requires redirection to not pull his lines which are irritating to him, especially during the night. He would likely benefit from memory care. Differential diagnosis Frontotemporal dementia Delirium due to multiple etiologies versus continued cognitive decline Suggestion: 1. Please refer patient to memory care. If behaviors are difficult to redirect or severe aggitation is present for a prolonged period may need to consider geriatric psychiatry. 2. Please consider ordering semi-occlusive dressings to areas of excoriation to prevent further tissue damage and reduce the risk for infection. 3. Please consider ordering ramelteon 8 mg or melatonin 10 by mouth daily at bedtime to help regulate circadian rhythm for delirium. 4. Continue olanzapine as currently ordered. Continue to monitor EKG and hold medication for QTc greater than 475ms 5. Please continue to avoid benzodiazepines, opioid analgesics, and meds with strong anticholinergic properties as much as possible to prevent further confusion. 6. Please initiate the following nonpharmacologic interventions: -Avoid nursing and medical procedures during sleep hours whenever possible - Cluster at night interventions that must be completed as much as possible to minimize sleep disruption - Decrease noise patient area during sleeping hours - Reduce lighting at night - Ensure patient has any sensory aids close by that he regularly uses Thank you for including psychiatry in this case we will continue to follow. Subjective Subjective: (as above) Objective Last 24 Hrs of Vital Signs/I&O Current Medications Sig/Zhane Start time Last Medication Dose Route Stop Time Status Admin Acetaminophen 325 MG Q6P PRN 12/28 2044 AC 12/31 PO 641 Atorvastatin Calcium 40 MG QPM 12/28 2199 AC 01/01 PO 2031 Ceftriaxone Sodium 1,000 MG DAILY 01/02 1000 AC 01/02 IV 09 Ceftriaxone Sodium 1,000 MG ONCE ONE 01/01 1145 DC 01/01 IV 01/01 1146 1205 Docusate Sodium 100 MG DAILY 12/29 1016 AC 01/02 PO 09 Doxazosin Mesylate 1 MG AT BEDTIME 01/01 2200 AC 01/01 PO 2030 Finasteride 5 MG DAILY 12/28 1930 AC 01/02 PO 09 Memantine 5 MG BID 12/29 1000 AC 01/02 PO 09 Mirtazapine 22.5 MG QPM 12/30 2199 AC 01/01 PO 2027 Olanzapine 5 MG AT BEDTIME 01/01 2200 AC 01/01 PO 2027 Polyethylene Glycol 17 GM DAILY 12/29 1016 AC 12/29 PO 1227 Senna/Docusate Sodium 2 TAB DAILY 12/30 1000 AC 01/02 PO 09 Trazodone HCl 25 MG AT BEDTIME 01/01 2200 AC 01/01 PO 2030 Laboratory Tests 01/02/17 0610: CBC w Diff MAN DIFF ORDERED, RBC 3.22 L, MCV 93.7, MCH 30.9, RDW 16.1 H, MPV 8.3, Gran % 86.7 H, Lymphocytes % 7.1 L, Monocytes % 5.1, Eosinophils % 0.9, Basophils % 0.2, Absolute Granulocytes 8.8 H, Absolute Lymphocytes 0.7 L, Absolute Monocytes 0.5, Absolute Eosinophils 0.1, Absolute Basophils 0, Platelet Estimate VERIFIED BY SMEAR, Polychromasia 1+, Anisocytosis 1+, PUBS MCHC 33.0 Vital Signs Date Time Temp Pulse Resp B/P B/P Pulse O2 O2 Flow FiO2 Mean Ox Delivery Rate 01/02 0800 96 Room Air 01/02 0651 98.0 89 20 120/84 96 Room Air 01/01 2333 97.9 89 18 140/70 99 Room Air 01/01 2044 74 18 145/63 95 01/01 1528 98.2 71 18 141/76 99 Intake & Output 01/02 1600 01/02 0800 01/02 0000 Intake Total Output Total 250 300 Balance -250 -300 Output, Urine 250 300
--- NOTE | 2017-01-02 12:43 | NUR ---
NURSING NOTE: PT GETTING AGITATED AND RESTLESS, PT DENIES PAIN OR DISTRESS WHEN ASKED. PT ATE LUNCH IN CHAIR, REPOSITIONED IN RECLINER; TRYING TO PULL OFF BLANKETS AND PULL AT BAUER. 299 PAGED AND TO COME ASSESS PT. NO PRN ORDERS AT THIS TIME. CONT TO MONITOR. PT PROVIDED WITH DISTRACTIONS PATIENT SAFETY MONITOR.
[2017-01-02 13:19] VITALS: BP 138/52
--- NOTE | 2017-01-02 13:45 | PN- Housestaff ---
CEJOANIELucas 01/02/17 1345: Subjective Follow-up For: Frontotemporal dementia worsening delirium BPH Recurrent falls Decreased PO intake Subjective: Seen and examined patient. In the morning patient was calm and no agitation was noted. Around 1pm became very agitated, pulling at nicole and attempting to get out of bed. was given a total of 7.5 mg of zyprexia to calm him down. Review of Systems Constitutional: Reports: see HPI. Objective Last 24 Hrs of Vital Signs/I&O Vital Signs Date Time Temp Pulse Resp B/P B/P Pulse O2 O2 Flow FiO2 Mean Ox Delivery Rate 01/02 1547 Room Air 01/02 1535 Room Air 01/02 1319 98.3 94 20 138/52 97 Room Air 01/02 0800 96 Room Air 01/02 0651 98.0 89 20 120/84 96 Room Air 01/01 2333 97.9 89 18 140/70 99 Room Air 01/01 2044 74 18 145/63 95 Intake & Output 01/02 1600 01/02 0800 01/02 0000 Intake Total 850 Output Total 350 250 300 Balance 500 -250 -300 Intake, IV 50 Intake, Oral 800 Number 0 Bowel Movements Output, Urine 350 250 300 Physical Exam General Appearance: Moderate Distress, cachetic Cardiovascular: Normal S1, Normal S2 Lungs: Normal Air Movement Extremities: No Edema Current Medications: Current Medications Sig/Zhane Start time Last Medication Dose Route Stop Time Status Admin Acetaminophen 325 MG Q6P PRN 12/28 2044 AC 12/31 PO 0642 Atorvastatin Calcium 40 MG QPM 12/28 2199 AC 01/01 PO 2031 Ceftriaxone Sodium 1,000 MG DAILY 01/02 1000 DC 01/02 IV 0922 Docusate Sodium 100 MG DAILY 12/29 1016 AC 01/02 PO 921 Doxazosin Mesylate 1 MG AT BEDTIME 01/01 2200 AC 01/01 PO 2030 Finasteride 5 MG DAILY 12/28 193 AC 01/02 PO 921 Melatonin 5 MG AT BEDTIME 01/02 2200 AC PO Memantine 5 MG BID 12/29 1000 AC 01/02 PO 921 Mirtazapine 22.5 MG QPM 12/30 2199 AC 01/01 PO 2027 Olanzapine 2.5 MG ONCE ONE 01/02 1415 DC 01/02 IM 01/02 141 1412 Olanzapine 2.5 MG ONCE ONE 01/02 1300 DC 01/02 PO 01/02 1301 1303 Olanzapine 5 MG AT BEDTIME 01/01 2200 DC 01/01 PO 2027 Polyethylene Glycol 17 GM DAILY 12/29 1016 AC 12/29 PO 1227 Senna/Docusate Sodium 2 TAB DAILY 12/30 1000 AC 01/02 PO 09 Trazodone HCl 25 MG AT BEDTIME 01/01 2200 AC 01/01 PO 2030 Last 24 Hrs of Lab/Wil Results Last 24 Hrs of Labs/Mics: Laboratory Tests 01/02/17 0610: CBC w Diff MAN DIFF ORDERED, RBC 3.22 L, MCV 93.7, MCH 30.9, RDW 16.1 H, MPV 8.3, Gran % 86.7 H, Lymphocytes % 7.1 L, Monocytes % 5.1, Eosinophils % 0.9, Basophils % 0.2, Absolute Granulocytes 8.8 H, Absolute Lymphocytes 0.7 L, Absolute Monocytes 0.5, Absolute Eosinophils 0.1, Absolute Basophils 0, Platelet Estimate VERIFIED BY SMEAR, Polychromasia 1+, Anisocytosis 1+, PUBS MCHC 33.0 Microbiology 01/02 915 BLOOD: Blood Culture - RECD 01/02 900 BLOOD: Blood Culture - RECD Assessment/Plan Assessment: 86 year old gentleman from home with a PMH of frontotemporal dementia, HTN, CVA, Basal Cell Cancer, BPH, HLD brought by son for recurrent falls, increasing weakness and decreased PO intake. On admission H/H was found to be 6.7/20.1, imaging r/o acute intracranial abnormality, maxillofacial/ c-spine fracture. He is s/p 2 units PRBC transfusion. Hospital day 5 He was agitated this afternoon, total of 7.5mg Zyprexa was given. He is currently off restraints and has a one-to-one sitter. Problem list: -Acute blood loss anemia -Acute kidney injury -Multiple trauma status post mechanical fall -History of frontotemporal dementia -Basal cell cancer -BPH -Hypertension -Hyperlipidemia Plan: -continue general medicine -Avoid delirium tremors, -Maintain hemoglobin >8.0, transfuse as needed -Continue safety monitor -Appreciate psychiatry recommendation, continue Namenda, melatonin trazadone and Remeron - avoid further doses of zyprexia today as it is associated with worse outcomes in frontotemporal dementia. -continue 1 mg of Cardura for his BPH will keep Nicole in for now as he continues to have some mild hematuria secondary to instrumentation. -Obtained ID consult for GPC growing in UC, most likely catheter association UTI however very difficult to assess if he is truly deliurious sec to the infection vs his worsening dementia. Per ID recs, will follow off antibiotics, if he spikes fever will reculture and reassess restarting IV antibiotics -attending had family meeting with son, his is agreeable to Hospice consult in the am. -Regular mechanical soft diet, apprec nutrition recomendations. -DVT prophylaxis -DNR/DNI Problem List: 1. Gait instability 2. Dementia 3. Malnutrition 4. Anemia Pain Ratin Pain Location: na Pain Goal: Pain 4 or less Pain Plan: current regimen Tomorrow's Labs & Rationales: none required LUPE NAVARRO,AILYN 01/02/17 1557: Attending MD Review Statement Attending Statement Attending MD Statement: examined this patient, discuss w/resident/PA/SAT INSTRUCTOR, agreed w/resident/PA/SAT INSTRUCTOR, discussed with family, reviewed EMR data (avail), discussed with nursing, discussed with case mgmt, reviewed images Attending Assessment/Plan: Patient's urine culture is now being reported as staph. Patient had urinary retention with BPH requiring a Nicole placement in the ER and transiently the Nicole was taken out but because of urinary retention was placed back in again. The first UA and urine cultures negative and now the UA is that he with a positive urine culture. Given that it's staph, will call in ID consult the question is to be treated, as the seeding from another source and we change antibiotics. In addition his agitated dementia continues to be an issue requiring when necessary antipsychotics and we need psych's help with that.
--- NOTE | 2017-01-02 14:14 | NUR ---
NURSING NOTE: PT AGITATED, TRYING TO GET OOB AND PULL OUT BAUER. PT RECHING FOR "I NEED THAT HAMMER OVER THERE" NO HAMMER IN ROOM. ATTEMPTED TO REORIENT. PT GIVEN TOWEL TO FOLD FOR DISTRACTION, ADMITTING MANAGER 299 AT BEDSISE, MALA FROM [facility] AT BEDSIDE, IM ZYPREXA GIVEN PER MD ORDER. CONT TO MONITOR.
--- NOTE | 2017-01-02 16:36 | Cons- Infect Disease ---
General Information and HPI Consulting Request Date of Consult: 01/02/17 Requested By: AILYN ANDRADE MD Reason for Consult: Positive urine culture for gram-positive cocci Source of Information: family Exam Limitations: dementia History of Present Illness: This is an 86-year-old man with a history of progressive dementia, hypertension and BPH admitted on December 28 with frequent falls, decreased po intake with sleep disturbances and increasing weakness over the past several months and, particularly, over the past 2 weeks, resulting in multiple bruises over his body and preventing him from carrying out his daily activities. On admission he was afebrile. Laboratory data revealed a white blood cell count of 9000, H&H 7 and 20, BUN/creatinine 32 and 1.5, with normal liver enzymes. Urinalysis rare WBC' s. CT of the head, maxillofacial area and cervical spine were negative for any acute process. CT of the chest, abdomen and pelvis revealed an L2 compression deformity, extensive COPD changes, with a markedly distended urinary bladder and prostate enlargement. A Bernardo catheter was inserted in the emergency room after some difficulty. It was removed on December 31 but had to be replaced after he failed to void. On January 01 a repeat urinalysis revealed pyuria, and he was begun on Ceftriaxone empirically. He has remained afebrile since admission and white blood cell count has been essentially normal. He has been agitated since admission. His oral intake has been inconsistent. Allergies/Medications Allergies: Coded Allergies: Penicillins (RASH, HIVES 05/09/16) bacitracin (From NEOSPORIN ([id number])) (RASH 05/09/16) latex (RASH 05/09/16) neomycin (From NEOSPORIN ([id number])) (RASH 05/09/16) polymyxin B (From NEOSPORIN ([id number])) (RASH 05/09/16) Home Med List: Amlodipine (Norvasc) 2.5 MG TABLET 1 TAB PO QPM BP (Reported) Aspirin (Ecotrin*) 81 MG TABLET.DR 1 TAB PO DAILY HEART/BLOOD (Reported) Atorvastatin Calcium (Lipitor) 40 MG TABLET 1 TAB PO QPM CHOLESTEROL ( Reported) Cholecalciferol (Vitamin D3) (Vitamin D3) 400 UNIT TABLET 2 TAB PO DAILY VITAMIN D (Reported) Ferrous Sulfate (Feosol) 325 MG (65 MG IRON) TABLET 1 TAB PO DAILY IRON SUPPLEMENT (Reported) Finasteride 5 MG TABLET 1 TAB PO DAILY PROSTATE (Reported) Memantine HCl (Namenda XR) 7 MG CAP.SPR.24 1 TAB PO D DEMENTIA (Reported) Mirtazapine 15 MG TABLET 1 TAB PO QPM SLEEP (Reported) Omeprazole 20 MG TABLET.DR 1 TAB PO QPM REFLUX (Reported) Past History Travel History Traveled to [place] past 21 day No Medical History Blood Transfusion Hx: No Neurological: dementia EENT: NONE Cardiovascular: hypertension Respiratory: NONE Gastrointestinal: NONE Hepatic: NONE Renal: urinary incontinence Musculoskeletal: NONE 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 Psychosocial History Where Do You Live? Home Who Do You Live With? child Services at Home: None Primary Language: Armenian Smoking Status: Former Smoker ETOH Use: denies use Illicit Drug Use: denies illicit drug use Power of Registered Private Duty Nurse/HCP? yes (son) Functional Ability ADLs Needs Assist: dressing, eating, toileting, bathing. Ambulation: walker IADLs Needs Assist: shopping, housework, finances, food prep, telephone, transportation, medication admin. Employment History Employment: Retired Review of Systems Comments Unobtainable Exam & Diagnostic Data Last 24 Hrs of Vital Signs/I&O Vital Signs Date Time Temp Pulse Resp B/P B/P Pulse O2 O2 Flow FiO2 Mean Ox Delivery Rate 01/02 1547 Room Air 01/02 1535 Room Air 01/02 1319 98.3 94 20 138/52 97 Room Air 01/02 0800 96 Room Air 01/02 0651 98.0 89 20 120/84 96 Room Air 01/01 2333 97.9 89 18 140/70 99 Room Air 01/01 2044 74 18 145/63 95 Intake & Output 01/02 1600 01/02 0800 01/02 0000 Intake Total 850 Output Total 350 250 300 Balance 500 -250 -300 Intake, IV 50 Intake, Oral 800 Number 0 Bowel Movements Output, Urine 350 250 300 Physical Exam Other Physical Findings: He is awake, but lethargic, arousable to pain and somewhat agitated. He appears quite cachectic. He is afebrile. Skin reveals multiple abrasions and excoriations. HEENT exam right periorbital swelling. Neck is supple with no adenopathy. Lungs are clear. Heart regular rhythm with no murmur. Abdomen is soft, nontender with positive bowel sounds. Back no CVA tenderness. Extremities no cyanosis, clubbing or edema. Neuro is without focality. Bernardo catheter is in place. Last 24 Hours of Lab Results: Laboratory Tests 01/02 0610 Hematology CBC w Diff MAN DIFF ORDERED WBC (4.8 - 10.8 /CUMM) 10.1 RBC (4.70 - 6.10 /CUMM) 3.22 L Hgb (14.0 - 18.0 G/DL) 9.9 L Hct (42 - 52 %) 30.2 L MCV (80.0 - 94.0 FL) 93.7 MCH (27.0 - 31.0 PG) 30.9 RDW (11.5 - 14.5 %) 16.1 H Plt Count (130 - 400 /CUMM) 230 MPV (7.4 - 10.4 FL) 8.3 Gran % (42.2 - 75.2 %) 86.7 H Lymphocytes % (20.5 - 51.1 %) 7.1 L Monocytes % (1.7 - 9.3 %) 5.1 Eosinophils % (0 - 5 %) 0.9 Basophils % (0.0 - 2.0 %) 0.2 Absolute Granulocytes (1.4 - 6.5 /CUMM) 8.8 H Absolute Lymphocytes (1.2 - 3.4 /CUMM) 0.7 L Absolute Monocytes (0.10 - 0.60 /CUMM) 0.5 Absolute Eosinophils (0.0 - 0.7 /CUMM) 0.1 Absolute Basophils (0.0 - 0.2 /CUMM) 0 Platelet Estimate (ADEQUATE) VERIFIED BY SMEAR Polychromasia 1+ Anisocytosis 1+ PUBS MCHC (33.0 - 37.0 G/DL) 33.0 Last 24 Hours of Wil Results: Blood cultures January 02 pending Urine culture January 01 greater than 100,000 colonies of gram-positive cocci Urine culture December 28 negative Diagnostic Data Recent Imaging Findings: CT of the head, maxillofacial area and cervical spine were negative for any acute process. CT of the chest, abdomen and pelvis revealed an L2 compression deformity, extensive COPD changes, with a markedly distended urinary bladder and prostate enlargement. Chest x-ray December 30 reveals cardiomegaly without pulmonary edema and subacute and acute right rib fractures Assessment/Plan Assessment/Plan Impression: This is an 86-year-old man with progressive dementia and BPH admitted on December 28 with increasing frequency of falls, decreased po intake and increasing weakness over the past several weeks, found to be afebrile with a normal white blood cell count but severe anemia, with a Bernardo catheter placed for urinary retention, with the development of pyuria and bacteriuria for which he was begun on antibiotics. It appears that he has acquired bacteriuria secondary to the Bernardo catheter but suspect this represents colonization, with no fevers or leukocytosis. He is unable to provide any history but, with the Bernardo catheter in place, antibiotic treatment is typically not recommended unless he develops clear signs of an upper urinary tract infection, for example fevers, leukocytosis or other signs of sepsis. His overall prognosis is quite poor and consideration to changing his level of care to comfort may be appropriate. If aggressive management is to be continued then alternatives to the Bernardo catheter , such as a suprapubic cystostomy, should be considered. Suggestion: 1. Would address the overall level of care in this patient 2. Urology evaluation for suprapubic cystostomy if plan to continue aggressive care 3. Discontinue Ceftriaxone and follow off antibiotics Consult Acknowledgment - Thank you for your consult request.
--- NOTE | 2017-01-02 20:36 | Cons- Urology ---
General Information and HPI Consulting Request Date of Consult: 01/02/17 Requested By: AILYN Townsend MD Reason for Consult: Urinary retention Source of Information: old records History of Present Illness: This patient presented to the ER with weakness, and falls. He was found to have a distended bladder on CT scan. A nicole was placed which was subsequently removed. However he did not void spontaneously and it was reinserted. Follow up U/A showed pyuria. He has progressive dementia,COPD, and HTN. Allergies/Medications Allergies: Coded Allergies: Penicillins (RASH, HIVES 05/09/16) bacitracin (From NEOSPORIN ([id number])) (RASH 05/09/16) latex (RASH 05/09/16) neomycin (From NEOSPORIN ([id number])) (RASH 05/09/16) polymyxin B (From NEOSPORIN ([id number])) (RASH 05/09/16) Home Med List: Amlodipine (Norvasc) 2.5 MG TABLET 1 TAB PO QPM BP (Reported) Aspirin (Ecotrin*) 81 MG TABLET.DR 1 TAB PO DAILY HEART/BLOOD (Reported) Atorvastatin Calcium (Lipitor) 40 MG TABLET 1 TAB PO QPM CHOLESTEROL ( Reported) Cholecalciferol (Vitamin D3) (Vitamin D3) 400 UNIT TABLET 2 TAB PO DAILY VITAMIN D (Reported) Ferrous Sulfate (Feosol) 325 MG (65 MG IRON) TABLET 1 TAB PO DAILY IRON SUPPLEMENT (Reported) Finasteride 5 MG TABLET 1 TAB PO DAILY PROSTATE (Reported) Memantine HCl (Namenda XR) 7 MG CAP.SPR.24 1 TAB PO D DEMENTIA (Reported) Mirtazapine 15 MG TABLET 1 TAB PO QPM SLEEP (Reported) Omeprazole 20 MG TABLET.DR 1 TAB PO QPM REFLUX (Reported) Current Medications: Current Medications Sig/Zhane Start time Last Medication Dose Route Stop Time Status Admin Acetaminophen 325 MG Q6P PRN 12/28 2044 AC 12/31 PO 641 Atorvastatin Calcium 40 MG QPM 12/28 2199 AC 01/01 PO 2031 Ceftriaxone Sodium 1,000 MG DAILY 01/02 1000 DC 01/02 IV 0922 Docusate Sodium 100 MG DAILY 12/29 1016 AC 01/02 PO 921 Doxazosin Mesylate 1 MG AT BEDTIME 01/01 2200 AC 01/01 PO 2030 Finasteride 5 MG DAILY 12/28 1930 AC 01/02 PO 921 Melatonin 5 MG AT BEDTIME 01/02 2200 AC PO Memantine 5 MG BID 12/29 1000 AC 01/02 PO 921 Mirtazapine 22.5 MG QPM 12/30 2200 AC 01/01 PO 2027 Olanzapine 2.5 MG ONCE ONE 01/02 1415 DC 01/02 IM 01/02 1416 1412 Olanzapine 2.5 MG ONCE ONE 01/02 1300 DC 01/02 PO 01/02 1301 1303 Olanzapine 5 MG AT BEDTIME 01/01 2200 DC 01/01 PO 2027 Polyethylene Glycol 17 GM DAILY 12/29 1016 AC 12/29 PO 1227 Senna/Docusate Sodium 2 TAB DAILY 12/30 1000 AC 01/02 PO 921 Trazodone HCl 25 MG AT BEDTIME 01/01 2200 AC 01/01 PO 2030 Past History Medical History Blood Transfusion Hx: No Neurological: dementia EENT: NONE Cardiovascular: hypertension Respiratory: NONE Gastrointestinal: NONE Hepatic: NONE Renal: urinary incontinence Musculoskeletal: NONE 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 Psychosocial History Where Do You Live? Home Who Do You Live With? child Services at Home: None Primary Language: Tamazight Smoking Status: Former Smoker ETOH Use: denies use Illicit Drug Use: denies illicit drug use Power of Design Drafter Chief/HCP? yes (son) Functional Ability ADLs Needs Assist: dressing, eating, toileting, bathing. Ambulation: walker IADLs Needs Assist: shopping, housework, finances, food prep, telephone, transportation, medication admin. Employment History Employment: Retired Exam & Diagnostic Data Vital Signs and I&O Vital Signs Date Time Temp Pulse Resp B/P B/P Pulse O2 O2 Flow FiO2 Mean Ox Delivery Rate 01/02 1547 Room Air 01/02 1535 Room Air 01/02 1319 98.3 94 20 138/52 97 Room Air 01/02 0800 96 Room Air 01/02 0651 98.0 89 20 120/84 96 Room Air 01/01 2333 97.9 89 18 140/70 99 Room Air 01/01 2044 74 18 145/63 95 Intake & Output 01/02 0800 01/02 0000 01/01 1600 01/01 0801/01 0000 Intake Total 850 720 70 600 Output Total 350 250 300 375 400 200 Balance 500 -250 -300 345 -330 400 Intake, IV 50 Intake, Oral 800 720 70 600 Number 0 Bowel Movements Output, Urine 350 250 300 375 400 200 Back: no CVA tenderness Abd: soft and non tender Genitalia: nicole in place Laboratory Tests 01/02 0610 Hematology CBC w Diff MAN DIFF ORDERED WBC (4.8 - 10.8 /CUMM) 10.1 RBC (4.70 - 6.10 /CUMM) 3.22 L Hgb (14.0 - 18.0 G/DL) 9.9 L Hct (42 - 52 %) 30.2 L MCV (80.0 - 94.0 FL) 93.7 MCH (27.0 - 31.0 PG) 30.9 RDW (11.5 - 14.5 %) 16.1 H Plt Count (130 - 400 /CUMM) 230 MPV (7.4 - 10.4 FL) 8.3 Gran % (42.2 - 75.2 %) 86.7 H Lymphocytes % (20.5 - 51.1 %) 7.1 L Monocytes % (1.7 - 9.3 %) 5.1 Eosinophils % (0 - 5 %) 0.9 Basophils % (0.0 - 2.0 %) 0.2 Absolute Granulocytes (1.4 - 6.5 /CUMM) 8.8 H Absolute Lymphocytes (1.2 - 3.4 /CUMM) 0.7 L Absolute Monocytes (0.10 - 0.60 /CUMM) 0.5 Absolute Eosinophils (0.0 - 0.7 /CUMM) 0.1 Absolute Basophils (0.0 - 0.2 /CUMM) 0 Platelet Estimate (ADEQUATE) VERIFIED BY SMEAR Polychromasia 1+ Anisocytosis 1+ PUBS MCHC (33.0 - 37.0 G/DL) 33.0 Assessment/Plan Assessment/Plan Imp: 1. urinary retention 2. BPH Plan: 1. Would maximize medical therapy for BPH 2. Continue finasteride 3. D/C cardura 4. Start tamsulosin 0.4 mg qd 5. If BP remains stable then increase tamsulosin to 0.4 mg bid. Can be done at [facility] 6. After above voiding trial. 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
[2017-01-02 22:12] VITALS: BP 120/62
[2017-01-03 06:58] VITALS: BP 142/74
[2017-01-03 10:30] VITALS: BP 142/74
--- NOTE | 2017-01-03 11:12 | PN- Housestaff ---
BONIFACIO ENCINASSANTILucas 01/03/17 1112: Subjective Follow-up For: Frontotemporal dementia worsening delirium BPH Recurrent falls Subjective: Seen and examined patient, continues to be agitated multiple times throughout the day, pulling lines, and picking skin, very hard to reorient. Review of Systems Constitutional: Reports: see HPI. Objective Last 24 Hrs of Vital Signs/I&O Vital Signs Date Time Temp Pulse Resp B/P B/P Pulse O2 O2 Flow FiO2 Mean Ox Delivery Rate 01/03 1030 98.3 81 20 142/74 01/03 0658 98.3 81 20 142/74 96 Room Air 01/02 2212 99.0 78 20 120/62 98 Room Air Intake & Output 01/03 1600 01/03 0800 01/03 0000 Intake Total 500 Output Total 650 325 Balance -650 175 Intake, Oral 500 Number 1 Bowel Movements Output, Urine 650 325 Physical Exam General Appearance: Moderate Distress, cachetic Skin: skin excoriations everywhere Cardiovascular: Normal S1, Normal S2 Lungs: Normal Air Movement Abdomen: Soft Current Medications: Current Medications Sig/Zhane Start time Last Medication Dose Route Stop Time Status Admin Acetaminophen 325 MG Q6P PRN 12/28 2044 DCD 12/31 PO 0642 Atorvastatin Calcium 40 MG QPM 12/28 2199 DCD 01/02 PO 2136 Docusate Sodium 100 MG DAILY 12/29 1016 DCD 01/03 PO 1030 Doxazosin Mesylate 1 MG AT BEDTIME 01/01 2200 DC 01/02 PO 2136 Finasteride 5 MG DAILY 12/28 1930 DCD 01/03 PO 1030 Haloperidol 2 MG ONCE ONE 01/03 1330 DCD IM 01/03 1331 Melatonin 5 MG AT BEDTIME 01/02 2200 DCD 01/02 PO 2136 Memantine 5 MG BID 12/29 1000 DCD 01/03 PO 1030 Mirtazapine 22.5 MG QPM 12/30 2199 DCD 01/02 PO 2136 Polyethylene Glycol 17 GM DAILY 12/29 1016 DCD 01/03 PO 1032 Senna/Docusate Sodium 2 TAB DAILY 12/30 1000 DCD 01/03 PO 1030 Tamsulosin HCl 0.4 MG DAILY 01/03 1000 DCD 01/03 PO 1030 Trazodone HCl 25 MG AT BEDTIME 01/01 2200 DCD 01/02 PO 2136 Assessment/Plan Assessment: 86 year old gentleman from home with a PMH of frontotemporal dementia, HTN, CVA, Basal Cell Cancer, BPH, HLD brought by son for recurrent falls, increasing weakness and decreased PO intake. On admission H/H was found to be 6.7/20.1, imaging r/o acute intracranial abnormality, maxillofacial/ c-spine fracture. He is s/p 2 units PRBC transfusion. Hospital day 6 continues to be agitated this afternoon, family is very concerned about his rapid deterioration with his agitation. Tmax 99.0, vitals stable. Problem list: -Acute blood loss anemia -Acute kidney injury -Multiple trauma status post mechanical fall -History of frontotemporal dementia -Basal cell cancer -BPH -Hypertension -Hyperlipidemia Plan: -will obtain hospice consult as family is wishing to have them assess him, he is requiring more medications to control his agitation which could ultimately further worsen his overall condition -after consulting with hospice was given 2mg of IM Haldol -Avoid delirium tremors, -Appreciate psychiatry recommendation, continue Namenda, melatonin trazadone and Remeron -Appreciate urology recomendations, Cardura dc and flomax started, will keep Nicole in and he might ultimately need indewelling nicole catheter -Regular mechanical soft diet, apprec nutrition recomendations. -DVT prophylaxis -DNR/DNI transferred to hospice care for focus on comfort and palliation. Problem List: 1. Dementia 2. Anemia 3. Malnutrition Pain Ratin Pain Location: na Pain Goal: Pain 4 or less Pain Plan: current regimen Tomorrow's Labs & Rationales: none required LUPE NAVARRO,AILYN 01/03/17 1153: Attending MD Review Statement Attending Statement Attending MD Statement: examined this patient, discuss w/resident/PA/PIG BREEDER, agreed w/resident/PA/PIG BREEDER, reviewed EMR data (avail), discussed with nursing, discussed with case mgmt, reviewed images Attending Assessment/Plan: Appreciate urology's consult. I spoke to the patient's son at length. Patient has fairly advanced frontotemporal dementia and has really been deteriorating for the past 1 year with multiple falls increasing agitation and poor by mouth intake. In addition he also has been removing all of his scabs from his basal cell carcinoma and has had some behavioral issues with agitation as well. Patient's son feels fairly strongly that the patient would not have wanted all of this and given his very poor quality of life he wants to keep him comfortable. We spoke about hospice at length and the plan is for a hospice evaluation to see whether he would qualify for inpatient hospice. The focus of care now is on comfort and palliation given his advanced dementia and poor quality of life.
--- NOTE | 2017-01-03 11:41 | NUR ---
PHYSICAL THERAPY: ATTEMPTED TO SEE PATIENT X2 THIS A.M.; PATIENT WAS SLEEPING, PER SITTER WAS RESTLESS ALL NIGHT. LETHARGIC, UNABLE TO OPEN EYES, AGITATED NOTED TO BE SWATTING AWAY ASSISTANCE, AND UNABLE TO FOLLOW VERBAL COMMANDS OR VERBALIZE NEEDS. WILL DEFER TREATMENT AT THIS TIME TO MAINTAIN SAFETY OF STAFF AND PATIENT. WILL F/U APPROPRIATE.
--- NOTE | 2017-01-03 12:38 | PN- Infect Dx ---
Subjective Subjective: Afebrile. He is unable to provide any history. Objective Last 24 Hrs of Vital Signs/I&O Vital Signs Date Time Temp Pulse Resp B/P B/P Pulse O2 O2 Flow FiO2 Mean Ox Delivery Rate 01/03 1030 98.3 81 20 142/74 01/03 0658 98.3 81 20 142/74 96 Room Air 01/02 2212 99.0 78 20 120/62 98 Room Air 01/02 1600 Room Air 01/02 1547 Room Air 01/02 1535 Room Air 01/02 1319 98.3 94 20 138/52 97 Room Air Intake & Output 01/03 1600 01/03 0800 01/03 0000 Intake Total 500 Output Total 650 325 Balance -650 175 Intake, Oral 500 Number 1 Bowel Movements Output, Urine 650 325 Physical Exam Other Physical Findings: He is minimally responsive Exam is unchanged, with Bernardo catheter remaining in place Results Last 24 Hours of Lab Results: No labs today Last 24 Hours of Wil Results: Urine culture January 01 greater than 100,000 colonies of coag-negative Staph Blood cultures 2 January 02 negative Assessment/Plan Impression: Overall status poor in this cachectic patient with progressive dementia. He remains afebrile with his most recent white blood cell count normal off antibiotics. His urine cultures are positive for coag-negative Staph, which likely represent colonization secondary to the Bernardo catheter, and do not require treatment. Urology input noted and appreciated. Suggestion: 1. Await decision regarding overall level of care 2. Continue to follow off antibiotics
== END 2017-01-03 13:27 | disposition hospice, home (50) | DRG 57 ==
LOC: ERH 12:11 → ERHI 18:59 → 2NB 18:59 → ENRESERV 19:34 → 2NB 20:18 → CMPBEDREQ 12-29 10:27 → 2NB 12-30 10:36 → 2NA 01-03 13:09
PROVIDERS: Internal Medicine; Internal Medicine Interventional Cardiology; Physician Assistant Medical; ADMIT Internal Medicine
PROC: 30233N1 Transfusion of Nonautologous Red Blood Cells into Peripheral Vein, Percutaneous Approach (ICD-10-PCS; principal; 2016-12-30)
DX: G31.09 Other frontotemporal neurocognitive disorder (principal); N17.9 Acute kidney failure, unspecified; R64 Cachexia; F02.81 Dementia in other diseases classified elsewhere, unspecified severity, with behavioral disturbance; D62 Acute posthemorrhagic anemia; Z68.1 Body mass index [BMI] 19.9 or less, adult; T83.511A Infection and inflammatory reaction due to indwelling urethral catheter, initial encounter; Z66 Do not resuscitate; Z51.5 Encounter for palliative care; R26.9 Unspecified abnormalities of gait and mobility; N40.1 Benign prostatic hyperplasia with lower urinary tract symptoms; R33.8 Other retention of urine; R62.7 Adult failure to thrive; Z87.891 Personal history of nicotine dependence; Z85.828 Personal history of other malignant neoplasm of skin; E78.5 Hyperlipidemia, unspecified
CPT/HCPCS: 2NBP; 2NBSP; 87184; 36415; 74176; 81001; 82436; 86920; 87040; 87086; 87147; 93005; 93010; 96372; 97116-GO; 97161-GP; 97530-GO; 97530-GP; 99232; J0696; J1630; J3490; J7042; P9016

== ENCOUNTER 2017-01-03 13:36 | Inpatient (IN) | payer OTHER ==
[~2017-01-03 13:36] MED LIST changes: +NAMENDA XR7 M1 PO
--- NOTE | 2017-01-03 16:08 | NUR ---
PT VERY AGITATED, PULLING AT BAUER, ATTEMPTING TO KICK SITTER, PUTTING LEGS OVER SIDE RAILS.MEDICATED WITH IV MORPHINE AT THIS TIME. PT NONVERBAL AT THIS TIME, ON RA, MULTIPLE SKIN TEARS AND BRUISING TO LEGS, ARMS, SCALP. SITTER IN PLACE. BAUER IN PLACE. SMALL AMT OF BLOODY URINE IN BAG. WILL CONTINUE TO MONITOR.
--- NOTE | 2017-01-03 17:17 | History & Physical ---
General Information and HPI Chief Complaint: admit to hospice Source of Information: family, old records Exam Limitations: not alert/orientated Associated Symptoms: agitation History of Present Illness: Pt. is an 86-year-old male with past history of frontotemporal dementia admitted with multiple falls, weakness, functional decline and cachexia. On admission he was noted to be acutely anemic and received blood transfusion, malnourished with fluctuating appetite, had urinary retention requiring catheterization. Son reports a significant decline since . Also during hospitalization pt has worsening behavioral disturbance most likely due to superimposed delirium on dementia. behaviors have not improved despite increase in mirtazapine and initiation of zyprexa and trazodone, and he has had a sitter. Pt has scabs on scalp from SCC that he has been picking off. At home, pt was on memantine for dementia and mirtazapine for mood. On review of records, also noted is acute rib fracture on CXR. 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 Was living with son who has been caregiver. No current use of etoh or tobacco. No living will or POA, but son states that pt would never want aggressive intervention. Functional Ability: Dependent for most ADLs/IADLs. Was able to ambulate with walker though had increasing falls. Review of Systems Review of Systems Constitutional: Reports: see HPI. Exam & Diagnostic Data Last 24 Hrs of Vital Signs/I&O Intake & Output 01/03 1600 01/03 0800 01/03 0000 Intake Total Output Total 300 Balance -300 Output, Urine 300 T-98.3; HR-81; RR-20; BP-142/74 Physical Exam General Appearance Mild Distress (restless, pulling nicole), chronically ill- appearing, cachectic Skin multiple areas of excoration, picked scabs on scalp, thighs, multiple bruises over extremities HEENT Mucous Membr. moist/pink, keeps eyes closed Cardiovascular Regular Rate, Normal S1, Normal S2, No Murmurs Lungs decreased breath sounds Abdomen Soft, No Tenderness, very thin Neurological restless movements, does not answer questions or follow instructions Extremities No Clubbing, No Cyanosis, No Edema Diagnostic Data CXR Results IMPRESSION: 1. Mild cardiomegaly without pulmonary edema. 2. Scattered groundglass pulmonary opacities observed on the recent chest CT are difficult to radiographically detect. 3. Subacute and acute right rib fractures are more clearly depicted on the recent chest CT exam, and findings include a moderately displaced, acute fracture of the right lateral ninth rib. Trace right pleural effusion. Other Results Abd/pelvis CT:IMPRESSION: 1. Limited exam due to positioning of the arms, lack of contrast and adipose tissue, however no evidence of an acute process or injury is identified. 2. The L2 compression deformity is age indeterminate but likely chronic with a probable underlying hemangioma. 3. Extensive COPD changes with a few scattered somewhat nodular appearing areas of groundglass opacity without evidence of lymphadenopathy. 4. Determine a partially calcified lesion left upper quadrant. 5. Markedly distended urinary bladder with prostate enlargement. Head/maxillofacial/cervical spine CT:IMPRESSION: The study is significantly motion limited. No gross intracranial acute abnormality. Volume loss with small vessel ischemic changes. No acute maxillofacial fracture is seen, although there is significant motion limitation. No acute fracture or malalignment of the cervical spine. Moderate degenerative changes. Assessment/Plan Assessment: Pt. is an 86-year-old male with past history of frontotemporal dementia with behavioral disturbance, admitted to hospice with acute anemia, malnutrition, acute rib fracture and superimposed delirium. Plan: For agitation, haldol 2mg SC every 4 hours as needed. Pt. continued to have significant agitation after first dose and then received another 3mg; will schedule 5mg every 6 hours ATC. Will not order ativan as this may likely cause increase in agitation/anxiety give history of frontontemporal dementia. For pain, will schedule morphine 1mg IV every 6 hours ATC, and every 2 hrs as needed.
--- NOTE | 2017-01-03 20:46 | NUR ---
1430- PT TRANSFERRED FROM ROOM 206 TO BE MADE INPATIENT HOSPICE. REPORT TAKEN FROM JOSE. PT EXTREMELY AGITATED AT THIS TIME, SITTER AT BEDSIDE. MUTIPLE SCABS PRESENT TO HEAD, ARMS, LEGS. PT FOUND TO BE PULLING AT IV LINE, PULLING AT BAUER- BAUER PUTTING OUT BLOOD TINGED URINE. ON SIZEWISE MATTRESS, DUODERM ON BACKSIDE. SON AT BEDSIDE, EMOTIONAL SUPPORT GIVEN. AWAITING MED ORDERS TO ASSIST WITH PT AGITATION. WILL MONITOR.
--- NOTE | 2017-01-03 23:07 | NUR ---
FOLLOW UP SHIFT NOTE: PT HAS REMAINED CALM AND SLEEPING FOR SHIFT AFTER ADMINISTRATION OF MORPHINE. OCCASIONAL MOVEMENTS MADE, REFUSING TO BE TURNED AND REPOSITIONED AT TIMES. DROWSY. REMAINS NONVERBAL. DID NOT CONSUME ANY OF DINNER TRAY. BACITRACIN APPLIED TO SCABS AND OPEN AREAS OF SCALP. BAUER DRAINED A TOTAL OF 100 CC BLOOD TINGED URINE. ON SIZEWISE MATTRESS. DAUGHTER VISITED PT. BED ALARM IN PLACE. WILL CONTINUE TO MONITOR
--- NOTE | 2017-01-04 | NUR ---
PT SLEEPING, APPEARS TO BE COMFORTABLE, RR 16 AND UNLABORED. MULTIPLE SCABS IN VARIOUS STAGES OF HEALING NOTED TO SCALP, BUE, BLE. DUODERM IN PLACE TO BACK/SPINE. BAUER PATENT, DRAINING HA URINE TO BEDSIDE. SCOPOLAMINE PATCH NOTED BEHIND LT EAR. SAFETY MONITOR AT BEDSIDE. WILL CONTINUE TO MONITOR.
--- NOTE | 2017-01-04 03:37 | NUR ---
PT SLEEPING, NO RESP DISTRESS NOTED. SMALL BLOOD CLOT NOTED IN BAUER CATHETER, APPEARS TO BE DRAINING WITHOUT DIFFICULTY. REPOSITIONED FOR COMFORT, REMAINS SLEEPING THROUGHOUT CARE GIVEN, THOUGH GRABBING ON TO BEDDING AT TIMES. SAFETY MONITOR REMAINS AT BEDSIDE. WILL CONTINUE TO MONITOR.
[2017-01-04 06:39] VITALS: BP 122/50
--- NOTE | 2017-01-04 16:05 | PN- Hospice ---
Subjective Subjective: Son at bedside. Pt has been calm, sedated overnight on sceduled morphine and haldol. Has not needed prns. Nursing reports that pt is responsive with care/ turning and tries to push assistance away or grab hands. Objective Last 24 Hrs of Vital Signs/I&O Vital Signs Date Time Temp Pulse Resp B/P B/P Pulse O2 O2 Flow FiO2 Mean Ox Delivery Rate 01/04 0639 98.4 74 14 122/50 95 Room Air Intake & Output 01/04 1600 01/04 0800 01/04 0000 Intake Total Output Total 500 200 Balance -500 -200 Number 0 Bowel Movements Output, Urine 500 200 Physical Exam General Appearance: no apparent distress, sedated Head: multiple scabbed areas on scalp Ears, Nose, Throat: dry mucus membranes Respiratory: no respiratory distress, quiet respiration Cardiovascular: regular rate/rhythm Extremities: no edema Other Physical Findings: nicole catheter with brown urine, several small clots Assessment/Plan Assessment/Recommendations: Pt. is an 86-year-old male with past history of frontotemporal dementia with behavioral disturbance, admitted to hospice with acute anemia, malnutrition, acute rib fracture s/p falls at home and superimposed delirium. Currently sedated, appears comfortable but responsive and possibly in pain with care. Will decrease haldol to 3mg SC every 6 hours and increase morphine to 2 mg IV every 6 hrs. Discussed with son, nurse and hospice nurse. Problem List: 1. Anemia 2. Malnutrition 3. Dementia
--- NOTE | 2017-01-04 17:46 | NUR ---
PT ASLEEP RESTING ON BACK AT THIS TIME. RR 14 NO AUDIBLE SECRETIONS. NO S/SX PAIN AT PRESENT. NO FAMILY PRESENT IN ROOM. BED ALARM PLUGGED IN AND FUNCTIONAL. AIR MATTRESS IN PLACE. CALL JOHN WITHIN REACH WILL MONITOR
[2017-01-05 06:30] VITALS: BP 118/54
--- NOTE | 2017-01-05 08:35 | NUR ---
PT AWAKE AND ALERT. EYES OPEN AND VERBALLY RESPONSIVE. DENIES PAIN OR DISCOMFORT AT THIS TIME. REPOSITIONED TO SEATED POSITION, FED BREAKFAST, ATE PUDDING AND 50% OF EGGS. SLIGHTLY RESTLESS AND FIDGITING IN BED, SCHEDULED HALDOL GIVEN. ON RA. NO RESP DISTRESS. BED ALARM IN PLACE. WILL MONITIOR.
--- NOTE | 2017-01-05 11:29 | NUR ---
0000 PT ASLEEP WHEN OBSERVED.ON RA.HOB UP.NO RESP DISTRESS NOTED.ON SIZEWISE BED.DSG TO RT.SIDE OF HEAD WITH SCANT DRAINAGE NOTED.DUODERN TO RT.SHOULDER & MID SPINE.TEGADERM TO LFA SKIN TEARS X2.NO DISTRESS NOTED. 0400 PT REMAINS ASLEEP ON ROUND.NO DISTRESS NOTED. 0554 PT AWAKE & GETTING AGITATED.HALDOL 2MG SC GIVEN PRN.SETTLED BACK TO SLEEP. 0600 F/C DRAINING DARK TO LIGHT HA URINE-100ML FOR THE SHIFT.T&R BUT PT RESISTS CARE.SLEPT FOR LONG PERIOD DURING NIGHT.
--- NOTE | 2017-01-05 16:03 | PN- Hospice ---
Subjective Subjective: Daughter at bedside. Pt. was alert and talkative this am, ate some breakfast. He has had increasing periods of agitation requiring prn haldol. Currently is not talkative, appears comfortable. Objective Last 24 Hrs of Vital Signs/I&O Vital Signs Date Time Temp Pulse Resp B/P B/P Pulse O2 O2 Flow FiO2 Mean Ox Delivery Rate 01/05 0630 98.2 77 16 118/54 92 Room Air Intake & Output 01/05 1600 01/05 0800 01/05 0000 Intake Total 100 0 10 Output Total 450 100 225 Balance -350 -100 -215 Intake, IV 0 10 Intake, Oral 100 0 Number 0 Bowel Movements Output, Urine 450 100 225 Physical Exam General Appearance: no apparent distress, sleeping with intermittent movement of limbs, picking at sheets Respiratory: no respiratory distress, quiet respiration Cardiovascular: regular rate/rhythm Abdomen: soft, non-tender Extremities: no edema Neurologic/Psychiatric: awakens to stimuli, spontaneously moves extremities, not talkative at this time Other Physical Findings: nicole catheter with wilbur urine, no hematuria today Assessment/Plan Assessment/Recommendations: Pt. is an 86-year-old male with past history of frontotemporal dementia with behavioral disturbance, admitted to hospice with acute anemia, malnutrition, acute rib fracture s/p falls at home and superimposed delirium. More alert today but with increased restlessness and agitation at times. Will increase scheduled haldol to 4mg every 6 hours and continue as needed 2mg every 4 hours. Discussed with daughter and nursing staff. Problem List: 1. Anemia 2. Malnutrition 3. Dementia
[2017-01-06 07:12] VITALS: BP 136/72
--- NOTE | 2017-01-06 09:23 | NUR ---
0800- PT RESTLESS, PICKING AND SCRATCHING AT OPEN AREAS TO HEAD AND ARMS. HALDOL GIVEN. DRESSINGS TO OPEN AREAS INTACT. SIZEWISE MATTRESS IN PLACE. BAUER DRAINING DARK HA URINE. BED ALARM IN PLACE. RR 18 WITH NO DISTRESS NOTED. NO VISITORS AT THIS TIME.
--- NOTE | 2017-01-06 10:24 | PN- Att Addend ---
Attending Addendum Attending Brief Note Overall patient appears to be doing okay but he still has periods of agitation and constantly picks on his scabs including his basal cell carcinoma scabs on his scalp. He is delirious, comfortable and blood pressure is on the low side at 110/70. Lungs have decreased breath sounds and heart is S1-S2 regular.\ He is an 86-year-old male with malnutrition, poor by mouth intake, severe anemia and advanced frontotemporal dementia. He is actively dying on hospice care and is on Haldol [id number] with morphine as needed. Given that he is picking on his scabs will try low-dose Ativan when necessary to keep him comfortable.
--- NOTE | 2017-01-06 13:23 | NUR ---
1200- PT ASLEEP WITH NO S/SX PAIN, AGITATION OR RESP DISTRESS AT THIS TIME. DURING MORNING, RESTLESS AND PICKING SKIN AT TIMES. SCHEDULED MORPHINE AND PRN HALDOL GIVEN WITH POSITIVE EFFECT. PT REPOSITIONED AND MOUTH CARE GIVEN.
--- NOTE | 2017-01-06 20:05 | NUR ---
1600- PT MINIMALLY RESPONSIVE. RESTLESS AT TIMES. RR 18 WITH NO RESPIRATORY DISTRESS NOTED. DRESSING CHANGED TO R EAR. PT RESTLESS WITH CARE AND REPOSITIONING. SCHEDULED HALDOL AND MORPHINE GIVEN ORDERED. FAMILY VISITED THIS AFTERNOON.
--- NOTE | 2017-01-07 08:54 | NUR ---
PT AWAKE, LAYING ON R SIDE, RR WNL, NO DYSPNEA NOTED, SCOPE PATCH TO L EAR IN PLACE, BAUER IN PLACE, CHECKED AXILLARY TEMP @ 99.8, MULTIPLE SKIN TEAR SITES COVERED WITH TEGADERM-DSG INTACT, NO S/S OF DISCOMFORT, PT ON SIZEWISE, NO FAMILY PRESENT AT THIS TIME. WILL CONTINUE TO MONITOR.
--- NOTE | 2017-01-07 11:10 | PN- Att Addend ---
Attending Addendum Attending Brief Note Pt continues to have periods of agitation and he still picking at his scabs. On exam he appears comfortable although intermittently agitated, BP is 100/70, multiple scabs over his scalp of basal cell carcinoma that he has picked on. Lungs have decreased breath sounds, heart is S1-S2 regular 86-year-old with severe anemia, malnutrition and poor by mouth intake, advanced frontotemporal dementia with multiple falls and rib fractures. He is here imminently dying, fairly comfortable. I spoke to the nurse and we are going to change the Ativan to IV as I don't think the low-dose subcutaneous is helping him. We are doing 0.5mg IV every 4 of Ativan with his other scheduled medications in the hope of decreasing agitation and keeping him comfortable.
--- NOTE | 2017-01-08 03:10 | NUR ---
NURSING NOTE: PT RESTING, APPEARS COMFORTABLE. NO SX RESPIRATORY DISTRESS NOTED. RR @ 12, SHALLOW, WITH PERIOD OF APNEA. BAUER DRAINING @ BEDSIDE. PT REPOSITIONED. RN WILL CONTINUE TO MONITOR.
[2017-01-08 07:31] VITALS: BP 126/60
--- NOTE | 2017-01-08 13:59 | PN- Hospice ---
Subjective Subjective: Pt. appears comfortable. Responsive on repositioning. No oral intake. Bernardo with wilbur urine. Objective Last 24 Hrs of Vital Signs/I&O Vital Signs Date Time Temp Pulse Resp B/P B/P Pulse O2 O2 Flow FiO2 Mean Ox Delivery Rate 01/08 0950 97.5 01/08 0828 100.9 01/08 0731 97.8 76 18 126/60 100 Room Air Intake & Output 01/08 1600 01/08 0800 01/08 0000 Intake Total 0 0 Output Total 250 0 Balance -250 0 Intake, IV 0 0 Intake, Oral 0 0 Number 0 0 Bowel Movements Output, Urine 250 0 Physical Exam General Appearance: no apparent distress, sedated Head: multiple scabbed and superficial abrasions to scalp Ears, Nose, Throat: oral mucosa dry Respiratory: no respiratory distress, quiet respiration Cardiovascular: regular rate/rhythm Extremities: no edema, no mottling Assessment/Plan Assessment/Recommendations: Pt. is an 86-year-old male with past history of frontotemporal dementia with behavioral disturbance, admitted to hospice with acute anemia, malnutrition, acute rib fracture s/p falls at home and superimposed delirium. Unresponsive except with repositioning can get agitated at times. Appears comfortable. Continue with current meds and supportive care.
[2017-01-09 06:30] VITALS: BP 118/60
--- NOTE | 2017-01-09 10:23 | NUR ---
0800- PT RESTLESS, GRIMACING WITH REPOSITIONING. PRN MORPHINE GIVEN, SCHEDULED HALDOL TO BE GIVEN. PT REPOSITIONED FOR COMFORT, MOUTHCARE GIVEN. BAUER IN PLACE DRAINING TEA COLORED URINE. DRESSING TO R EAR C,D,I. SCATTERED HEALING SKIN TEARS. DUODERM IN PLACE TO SPINE. NO FAMILY PRESENT AT THIS TIME.
--- NOTE | 2017-01-09 13:44 | PN- Hospice ---
Subjective Subjective: Pt. is unresponsive. Nursing reports body language during care and repositioning is tense and indicating pain. Little urine output. Objective Last 24 Hrs of Vital Signs/I&O Vital Signs Date Time Temp Pulse Resp B/P B/P Pulse O2 O2 Flow FiO2 Mean Ox Delivery Rate 01/09 0630 97.6 78 18 118/60 90 Room Air Intake & Output 01/09 1600 01/09 0800 01/09 0000 Intake Total Output Total 200 150 Balance -200 -150 Output, Urine 200 150 Physical Exam General Appearance: no apparent distress Respiratory: no respiratory distress, quiet respiration Cardiovascular: regular rate/rhythm Extremities: no edema Other Physical Findings: tea-colored urine Assessment/Plan Assessment/Recommendations: Pt. is an 86-year-old male with past history of frontotemporal dementia with behavioral disturbance, admitted to hospice with acute anemia, malnutrition, acute rib fracture s/p falls at home and superimposed delirium. Appears in pain with care/repositioning. Will increase morphine frequency to every 4 hours, continue as needed dosing also. Problem List: 1. Anemia 2. Malnutrition 3. Dementia
--- NOTE | 2017-01-09 20:05 | NUR ---
1600- FAMILY MEMBERS AT BEDSIDE. PT MININALLY RESPONSIVE TO VOICE, REPOSITIONING. RR 16 AND SHALLOW. PEROIDS OF APNEA NOTED. NO S/SX PAIN, AGITATION OR RESP DISTRESS. DRESSING IN PLACE TO R EAR. SIZEWISE MATTRESS IN PLACE. BAUER DRAINING SMALL AMOUNT OF TEA COLORED URINE.
--- NOTE | 2017-01-09 22:00 | NUR ---
NURSING NOTE: PT RESTING COMFORTABLY. RR @ 12 WITH PERIODS OF APNEA. NO DISTRESS NOTED. PT REPOSITIONED, BAUER CARE GIVEN. NO OUTPUT IN BAUER THIS SHIFT. MOUTH CARE PROVIDED. NO FAMILY AT BEDSIDE AT THIS TIME. RN WILL CONTINUE TO MONITOR.
--- NOTE | 2017-01-10 05:23 | NUR ---
NURSING NOTE: PT WAS COMFORTABLE THROUGHOUT THIS RN'S SHIFT. RR 10-14, SHALLOW, NONLABORED, WITH PERIODS OF APNEA. MINIMAL BAUER OUT PUT - TEA COLOR. MINIMALLY RESPONSIVE, BODY TENSE W REPOSITIONING. RN WILL CONTINUE TO MONITOR
--- NOTE | 2017-01-10 06:15 | NUR ---
NURSING NOTE: PT SPIKED TEMP OF 101 AXILLARY. MI TYLENOL ADMINISTERED BY THIS RN.
[2017-01-10 06:37] VITALS: BP 116/60
--- NOTE | 2017-01-10 12:54 | NUR ---
1200- PT MINIMALLY RESPONSIVE TO REPOSITIONING. NON VERBAL. BAUER IN PLACE DRAINING MINIMAL AMT OF TEA COLORED URINE. RESTLESS AT TIMES. FACIAL GRIMACING AT TIMES RESOLVED WITH SCHEDULED MORPHINE. RR 18 AND NON LABORED. BED ALARM ON AND FUNCTIONING. NO PO INTAKE. NO FAMILY PRESENT AT THIS TIME. SIZEWISE MATTRESS IN PLACE.
--- NOTE | 2017-01-10 15:12 | PN- Hospice ---
Subjective Subjective: Pt had fever this am, received tylenol suppository and temp down to 99.5. He is minimally responsive and appears comfortable, has not required any as needed medications, only scheduled ones. Objective Last 24 Hrs of Vital Signs/I&O Vital Signs Date Time Temp Pulse Resp B/P B/P Pulse O2 O2 Flow FiO2 Mean Ox Delivery Rate 01/10 0710 99.5 01/10 0637 101.0 108 20 116/60 82 Room Air 01/10 0607 101.0 Intake & Output 01/10 1600 01/10 0800 01/10 0000 Intake Total 0 0 0 Output Total 150 50 0 Balance -150 -50 0 Intake, IV 0 Intake, Oral 0 0 0 Number 0 Bowel Movements Output, Urine 150 50 0 Physical Exam General Appearance: no apparent distress Ears, Nose, Throat: oral mucosa dry Respiratory: no respiratory distress, quiet respiration, no congestion noted Cardiovascular: tachycardia Extremities: no edema Neurologic/Psychiatric: spontaneous movemnt of right upper extremity noted Other Physical Findings: nicole with small amount tea-colored urine Assessment/Plan Assessment/Recommendations: Pt. is an 86-year-old male with past history of frontotemporal dementia with behavioral disturbance, admitted to hospice with acute anemia, malnutrition, acute rib fracture s/p falls at home and superimposed delirium. Comfortable. Continue current medications. Problem List: 1. Anemia 2. Malnutrition 3. Dementia
--- NOTE | 2017-01-10 16:00 | NUR ---
PT UNRESPONSIVE AT THIS TIME, APPEARS COMFORTABLE IN BED. RR 12, UNLABORED. NO CONGESTION NOTED. FLACC SCORE 0. NO S/S OF DISCOMFORT OR DISTRESS. BAUER DRAINING TO GRAVITY. [address] SCOPE PATCH TO L EAR. DRY DRESSING TO R SIDE OF FACE DUE TO PT SCRATCHING AT SIDE. ON SIZEWISE MATTRESS. FAMILY AT BEDSIDE. WILL CONTINUE TO MONITOR.
--- NOTE | 2017-01-10 20:00 | NUR ---
PT REMAINS RESTING COMFORTABLY IN BED. SCHEDULED DOSE OF MORPHINE GIVEN AT 1800 PER EMAR. RR 16, UNLABORED, NO DISTRESS NOTED. TURNED & REPOSITIONED, TOLERATED WELL. SKIN & ORAL CARE PROVIDED. WILL CONTINUE TO MONITOR.
[2017-01-11 07:22] VITALS: BP 100/46
--- NOTE | 2017-01-11 09:03 | NUR ---
0700- T 101.3, TYLENOL 650 MD GIVEN 0800- T 101.5 0830- T 101.5. KWESI BARNETT APRN NOTIFIED. ASPIRIN 300 MG ORDERED MD AND TO BE GIVEN.
--- NOTE | 2017-01-11 13:22 | PN- Hospice ---
Subjective Subjective: Pt. is unresponsive. Required as needed morphine x 1 overnight. Urine output is very little. Febrile earlier with poor response to tylenol. Objective Last 24 Hrs of Vital Signs/I&O Vital Signs Date Time Temp Pulse Resp B/P B/P Pulse O2 O2 Flow FiO2 Mean Ox Delivery Rate 01/11 1015 99.0 01/11 0847 101.5 01/11 0722 101.3 105 20 100/46 75 Room Air 01/11 0705 101.3 Intake & Output 01/11 1600 01/11 0800 01/11 0000 Intake Total 0 Output Total 25 0 Balance -25 0 Intake, Oral 0 Output, Urine 25 0 Physical Exam General Appearance: mild distress Respiratory: mildly labored respirations, RR-24 Cardiovascular: tachycardia Extremities: no edema, no mottling Assessment/Plan Assessment/Recommendations: Pt. is an 86-year-old male with past history of frontotemporal dementia with behavioral disturbance, admitted to hospice with acute anemia, malnutrition, acute rib fracture s/p falls at home and superimposed delirium. Discussed with nursing, due for scheduled medication now. Continue with prn tylenol and aspirin for fever; scheduled morphine and haldol, and as needed morphine for labored breathing/pain.
--- NOTE | 2017-01-11 15:57 | NUR ---
1200- PT NON RESPONSIVE TO CARE. EYE OPENING AT TIMES. BAUER DRAINING MININAL AMOUNT OF TEA COLORED URINE. NO S/SX PAIN, AGITATION OR RESP DISTRESS. PT SON VISITED TODAY. SIZEWISE MATTRESS IN PLACE. WILL CONTINUE TO MONITOR.
--- NOTE | 2017-01-11 20:44 | NUR ---
SHIFT NOTE- PT UNRESPONSIVE. ON RA. RR 10-14. NONLABORED, NO DYSPNEA. SCHEDULED MORPHINE GIVEN PER EMAR. BAUER DRAINING SMALL AMT TEA COLORED URINE. ON SIZEWISE MATTRESS. SKIN CARE AND MOUTH CARE PROVIDED. DUODERM TO SPINE, DRESSING TO SIDE OF LEFT HEAD/EAR. OPEN LESIONS TO SKIN. NYSTATIN POWDER APPLIED TO GROIN-GROIN SLIGHTLY RED. [address] DAUGHTER LESLIE VISITED TODAY. TEMP CHECKED AT 1900 99.5, [address]ED [address]ARM [address]. WILL CONTINUE TO MONITOR.
[2017-01-12 06:38] VITALS: BP 110/54
--- NOTE | 2017-01-12 10:38 | PN- Hospice ---
Subjective Subjective: Pt. is unresponsive, no urinary output. Febrile over night. Objective Last 24 Hrs of Vital Signs/I&O Vital Signs Date Time Temp Pulse Resp B/P B/P Pulse O2 O2 Flow FiO2 Mean Ox Delivery Rate 01/12 1030 100.2 01/12 0954 100.2 01/12 0659 102.0 01/12 0638 102.0 103 20 110/54 87 Room Air 01/11 1433 100.0 20 Intake & Output 01/12 1600 01/12 0800 01/12 0000 Intake Total Output Total 20 Balance -20 Output, Urine 20 Physical Exam General Appearance: no apparent distress Respiratory: no respiratory distress, quiet respiration Cardiovascular: tachycardia Extremities: no edema, mild mottling bilat. toes, plantar aspect Current Medications: Current Medications Sig/Zhane Start time Last Medication Dose Route Stop Time Status Admin Acetaminophen 650 MG Q4 01/12 1000 AC 01/12 [place] 1030 Acetaminophen 650 MG Q4P PRN 01/03 1415 01/12 [place] 0659 Aspirin 300 MG Q4 HRS NEEDED PRN 01/11 0900 AC 01/11 [place] 0909 Bisacodyl 10 MG DAILY NEEDED PRN 01/03 1415 AC [place] Glycerin 2 SPRAY Q4P PRN 01/11 1415 AC 01/12 PO 0223 Glycerin/Mineral Oil 1 DIANA TID PRN 01/03 1415 01/08 TOP 0834 Glycopyrrolate 200 MCG Q4 HRS NEEDED PRN 01/08 1415 SC Haloperidol 4 MG Q6H 01/05 1515 01/12 SC 0947 Haloperidol 2 MG Q4 HRS NEEDED PRN 01/03 1415 01/09 SC 0439 Lorazepam 0.5 MG Q4P PRN 01/08 1415 01/08 SC 2023 Morphine Sulfate 2 MG Q4 01/09 1400 AC 01/12 SC 0948 Morphine Sulfate 2 MG Q2P PRN 01/08 1415 01/11 SC 0231 Nystatin 1 DIANA BID 01/11 2200 01/12 TOP 0948 Scopolamine HBr 1 PAT Q72H PRN 01/03 1415 01/08 TOP 0833 Assessment/Plan Assessment/Recommendations: Pt. is an 86-year-old male with past history of frontotemporal dementia with behavioral disturbance, admitted to hospice with acute anemia, malnutrition, acute rib fracture s/p falls at home and superimposed delirium. Consistently febrile, will schedule tylenol suppository and has as needed aspirin if tylenol ineffective. Continue other medications.
--- NOTE | 2017-01-12 18:40 | NUR ---
PT UNRESPONSIVE. ON RA. MEDICATED WITH PRN MORPHINE AT THIS TIME FOR LABORED BREATHING RR 24. PT'S SON IN TO VISIT EARLIER. PO CARE GIVEN. TURNED AND REPOSITIONED FOR COMFORT. SOME MOTTLING NOTED TO BILATERAL FEET/LEGS. 3 SQ BUTTONS INTACT. SCATTERED SKIN TEARS TO BILATERAL ARMS, DRESSINGS CD+I, DRESSING TO LEFT EAR CD+I. ON SIZEWISE MATTRESS. LAST RECTAL TEMP 99.1 MEDICATED WITH MA TYLENOL PER EMAR SCHEDULED. WILL CONTINUE TO MONITOR
--- NOTE | 2017-01-12 19:32 | NUR ---
RR AT THIS TIME 24-26 MEDICATED WITH PRN MORPHINE SC AND PRN ATIVAN SC. WILL TEMP 99.0 WILL CONTINUE TO MONITOR
--- NOTE | 2017-01-12 22:13 | NUR ---
PT WITHOUT APICAL PULSE, NO RESPIRATIONS, PUPILS FIXED AND NON REACTIVE TO LIGHT. THIS NURSE PRONOUNCED PT AT 2026. CALL PLACED TO FAMILY-ENRIQUE WHO ARRIVED TO VISIT WITH PT. NO BELONGINGS WITH PT-FAMILY HAS AT HOME. POSTMORTUM CARE GIVEN- WILL SEND TO [facility] AT THIS TIME
--- NOTE | 2017-01-15 13:45 | Discharge Summary ---
Visit Information Visit Dates Admission Date: 01/03/17 Discharge Date: 01/12/17 Hospital Course Course Attending Physician: LUPE NAVARRO,AILYN [place] Primary Care Physician: LILA CORTEZ Hospital Course: Pt. is an 86-year-old male with past history of frontotemporal dementia with behavioral disturbance, admitted to hospice with acute anemia, malnutrition, acute rib fracture and superimposed delirium. He was kept comfortable with morphine and ativan until he passed peacefully on 01/12/17. Allergies: Coded Allergies: Penicillins (RASH, HIVES 05/09/16) bacitracin (From NEOSPORIN ([id number])) (RASH 05/09/16) latex (RASH 05/09/16) neomycin (From NEOSPORIN ([id number])) (RASH 05/09/16) polymyxin B (From NEOSPORIN ([id number])) (RASH 05/09/16) Disposition Summary Disposition Principal Diagnosis: Anemia, acute malnutrition Rib fracture, acute Delirium Additional Diagnosis: Frontotemporal dementia with behavioral disturbance Discharge Disposition: Discharge Instructions General Discharge Information Code Status: Hospice Patient's Diet: N/A Patient's Activity: N/A Follow-Up Instructions/Appts: N/A Copies To: LILA CORTEZ
== END 2017-01-12 20:27 | disposition expired | DRG 57 ==
LOC: 2NA 13:36
PROVIDERS: ADMIT Internal Medicine
DX: G31.09 Other frontotemporal neurocognitive disorder (principal); R64 Cachexia; Z51.5 Encounter for palliative care; E46 Unspecified protein-calorie malnutrition; F05 Delirium due to known physiological condition; F02.81 Dementia in other diseases classified elsewhere, unspecified severity, with behavioral disturbance; S22.39XA Fracture of one rib, unspecified side, initial encounter for closed fracture; I10 Essential (primary) hypertension; E78.5 Hyperlipidemia, unspecified; K21.9 Gastro-esophageal reflux disease without esophagitis; N40.1 Benign prostatic hyperplasia with lower urinary tract symptoms; N39.498 Other specified urinary incontinence; R62.7 Adult failure to thrive; W19.XXXA Unspecified fall, initial encounter; Z91.81 History of falling; Y92.009 Unspecified place in unspecified non-institutional (private) residence as the place of occurrence of the external cause
CPT/HCPCS: 2NAP; J1630